=== PATIENT | male | born 1985 | race Caucasian/White ===

== ENCOUNTER 2017-08-27 10:28 | Inpatient (IN) | payer OTHER ==
[2017-08-27 10:50] VITALS: BMI 37.5
--- NOTE | 2017-08-27 13:10 | HP ---
CIWA Score - CIWA Score Nausea/Vomitin (N/V) Muscle Tremors: 1-None Visible, but [facility] Anxiety: 4-Mod. Anxious/Guarded Agitation: 4-Moderately Restless Paroxysmal Sweats: 1-Minimal Palms Moist Orientation: 0-Oriented Tacttile Disturbances: 3-Moderate Itch/Numb/Burn Auditory Disturbances: 0-None Visual Disturbances: 0-None Headache: 1-Very Mild CIWA-Ar Total Score: 19 Admission ROS S - HPI Chief Complaint: WITHRAWAL FROM XANAX AND ALCOHOL Allergies/Adverse Reactions: Allergies Allergy/AdvReac Type Severity Reaction Status Date / Time Penicillins Allergy Severe Rash Verified 08/27/17 11:48 shellfish derived Allergy Severe Hives Verified 08/27/17 11:48 History of Present Illness: 32 Y/O H/MALE WITH A HX OF XANAX, ALCOHOL AND MARIJUANA DEPENDENCE SEEKING DETOX [place] Exam Limitations: No Limitations - Ebola screening Have you traveled outside of the country in the last 21 days: No Have you had contact with anyone from an Ebola affected area: No Have you been sick,other than usual withdrawal symptoms: No - Review of Systems Constitutional: Chills, Loss of Appetite, Night Sweats, Changes in sleep EENT: reports: Blurred Vision (WEARS GLASSES), Tearing, Nose Congestion, Dental Problems (TOOTH EXTRACTION IN THE PAST) Respiratory: reports: Shortness of Breath (HX ASTHMA), Wheezing Cardiac: reports: Lightheadedness GI: reports: Constipated (OIC), Diarrhea, Nausea, Poor Appetite, Vomiting, Abdominal cramping : reports: Dysuria ("TAKES TOO LONG TO PEE") Musculoskeletal: reports: Back Pain, Joint Pain, Muscle Pain Integumentary: reports: No Symptoms Reported Neuro: reports: Headache, Tremors, Unsteady Gait, Dizziness Endocrine: reports: No Symptoms Reported Hematology: reports: No Symptoms Reported Psychiatric: reports: Orientated x3, Anxious, Depressed Other Systems: Reviewed and Negative Patient History - Patient Medical History Hx Anemia: No Hx Asthma: Yes (Pt is on MDI) Hx Chronic Obstructive Pulmonary Disease (COPD): No Hx Cancer: No Hx Cardiac Disorders: No Hx Congestive Heart Failure: No Hx Hypertension: No Hx Hypercholesterolemia: No Hx Pacemaker: No HX Cerebrovascular Accident: No Hx Seizures: No Hx Dementia: No Hx Diabetes: No Hx Gastrointestinal Disorders: No Hx Liver Disease: No Hx Genitourinary Disorders: No Hx Sexually Transmitted Disorders: No Hx Renal Disease (ESRD): No Hx Thyroid Disease: No Hx Human Immunodeficiency Virus (HIV): No (negative hx) Hx Hepatitis C: No (negative) Hx Depression: Yes (NOT CURRENTLY ON MEDS) Hx Suicide Attempt: Yes (Tried to cut himself in 2010;DENIES CURRENT S/H/I) Hx Bipolar Disorder: No Hx Schizophrenia: No - Patient Surgical History Past Surgical History: Yes Hx Neurologic Surgery: No Hx Cataract Extraction: No Hx Cardiac Surgery: No Hx Lung Surgery: No Hx Breast Surgery: No Hx Breast Biopsy: No Hx Abdominal Surgery: No Hx Appendectomy: No Hx Cholecystectomy: No Hx Genitourinary Surgery: No Hx Orthopedic Surgery: Yes (left shoulder torn rotator cuff repair circa 2006) Anesthesia Reaction: No - PPD History Previous Implant?: Yes Documented Results: Negative w/proof Implanted On Prior [facility] Admission?: Yes Date: 06/02/17 Results: 0 mm PPD to be Administered?: No - Reproductive History Patient is a Female of Child Bearing Age (11 -55 yrs old): No (MALE) - Smoking Cessation Smoking history: Current every day smoker Have you smoked in the past 12 months: Yes Aproximately how many cigarettes per day: 20 Cigars Per Day: 0 Hx Chewing Tobacco Use: No Initiated information on smoking cessation: Yes 'Breaking Loose' booklet given: 08/27/17 - Substances Abused Alprazolam (Xanax) Route: Oral Frequency: Daily Amount used: 6mg Age of first use: 23 Date of Last Use: 08/27/17 Alcohol Route: Oral Frequency: Daily Amount used: 1 pint vodka/ 2 40 oz malt liquor Age of first use: 17 Date of Last Use: 08/27/17 Marijuana/Hashish Route: Smoking Frequency: Daily Amount used: 1 blunt Age of first use: 17 Date of Last Use: 08/25/17 PCP Route: Smoking Frequency: 1-3 times last 30 days Amount used: 1 blunt Age of first use: 20 Date of Last Use: 08/20/17 Family Disease History - Family Disease History Family Disease History: Diabetes: Father (drug addiction) Admission Physical Exam BHS - Vital Signs Vital Signs: Vital Signs - 24 hr 01/30/18 10:48 Temperature 98.1 F Pulse Rate 115 H Respiratory 18 Rate Blood Pressure 150/97 - Physical General Appearance: Yes: Moderate Distress, Irritable, Anxious HEENTM: Yes: EOMI, Normocephalic, OLE, Pharynx Normal Respiratory: Yes: Chest Non-Tender, Lungs Clear, Normal Breath Sounds, No Respiratory Distress Neck: Yes: No masses,lesions,Nodules, Supple, Trachea in good position Breast: Yes: Breast Exam Deferred Cardiology: Yes: Regular Rhythm, S1, S2, Tachycardia Abdominal: Yes: Normal Bowel Sounds, Non Tender, Soft, Protuberent Genitourinary: Yes: Other (N/C) Back: Yes: Within Normal Limits Musculoskeletal: Yes: full range of Motion, Gait Steady Extremities: Yes: Normal Range of Motion, Non-Tender 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, Fully Oriented, Alert, Motor Strength 5/5 Integumentary: Yes: Dry, Warm Lymphatic: Yes: Within Normal Limits - Diagnostic (1) Alcohol dependence with uncomplicated withdrawal Current Visit: Yes Status: Acute (2) Nicotine dependence Current Visit: Yes Status: Acute Qualifiers: Nicotine product type: cigarettes Substance use status: in withdrawal Qualified Code(s): F17.213 - Nicotine dependence, cigarettes, with withdrawal (3) Sedative hypnotic or anxiolytic dependence Current Visit: Yes Status: Acute (4) Asthma Current Visit: Yes Status: Chronic Qualifiers: Asthma severity: mild Asthma persistence: unspecified Asthma complication type: uncomplicated Qualified Code(s): J45.909 - Unspecified asthma, uncomplicated (5) Marijuana dependence Current Visit: Yes Status: Acute (6) Methadone maintenance therapy patient Current Visit: Yes Status: Chronic Cleared for Admission [facility] - Detox or Rehab [facility] Level of Care: Medically Managed Detox Regimen/Protocol: Librium [facility] Breath Alcohol Content Breath Alcohol Content: 0 Urine Drug Screen - Results Drug Screen Negative: No Urine Drug Screen Results: THC-Marijuana, ROBY-Cocaine, BZO-Benzodiazepines, MTD- Methadone, TCA-Tricyclic Antidepress
[2017-08-27] MEDS ORDERED: guaiFENesin/D-METHORPHAN HB 10 ML UNIT-DOSE CUPS PO PRN (13:25)
[2017-08-27] MEDS ORDERED: LOPERAMIDE HCL 2 MG CAPSULE PO PRN (13:25)
[2017-08-27] MEDS ORDERED: MAGNESIUM CITRATE 300 ML BOTTLE PO PRN (13:25)
[2017-08-27] MEDS ORDERED: IBUPROFEN 400 MG TABLET (FP) PO PRN (13:25)
[2017-08-27] MEDS ORDERED: MAGNESIUM HYDROX 2400MG/30ML ORAL SUSPENSION 30 ML CUP PO PRN (13:25)
[2017-08-27] MEDS ORDERED: P-EPHED 60MG/TRIPROLIDI 2.5MG TABLET PO PRN (13:25)
[2017-08-27] MEDS ORDERED: MAG HYDROX/AL HYDROX/SIMETH 30 ML UNIT-DOSE CUP PO PRN (13:25)
[2017-08-27] MEDS ORDERED: ACETAMINOPHEN 325 MG TABLET (FP) PO PRN (13:25)
[2017-08-27] MEDS ORDERED: MENTHOL/PHENOL 1 EACH UD MM PRN (13:25)
[2017-08-27] MEDS ORDERED: chlordiazePOXIDE HCL 25 MG CAPSULE PO ONE (13:45)
[2017-08-27] MEDS: NICOTINE 21 MG/24 HOURS TOPICAL PATCH TD SCH (14:31)
[2017-08-27] MEDS: NICOTINE POLACRILEX 4 MG GUM BUC PRN ×4 (14:31→22:05)
--- NOTE | 2017-08-27 15:49 | EKG ---
Test Reason : Blood Pressure : / mmHG Vent. Rate : 077 BPM Atrial Rate : 077 BPM P-R Int : 150 ms QRS Dur : 104 ms QT Int : 398 ms P-R-T Axes : 025 049 036 degrees QTc Int : 450 ms NORMAL SINUS RHYTHM NORMAL ECG WHEN COMPARED WITH ECG OF 31-MAY-2017 14:22, NO SIGNIFICANT CHANGE WAS FOUND Confirmed by MD FANY, YENY ([id number]) on 08/27/2017 3:49:45 PM Referred By: Confirmed By:YENY SOARES MD
--- NOTE | 2017-08-27 16:00 | CONSULT ---
[facility] Psychiatric Consult - Data Date of interview: 08/27/17 Admission source: [facility] Identifying data: Another admission to [facility] for this 32 y/o male seeking detox treatment on for alcohol,opioid,cannabis,xanax and cocaine dependence.Patient is single without children,currently undomiciled, unemployed and reportedly deprived of any source of income. Substance Abuse History: Discussed in this interview.Addictions confirmed by the patient as reported in current [facility] document : Smoking history: Current every day smoker. Have you smoked in the past 12 months: Yes. Aproximately how many cigarettes per day: 20. Cigars Per Day: 0. Hx Chewing Tobacco Use: No. Initiated information on smoking cessation: Yes. 'Breaking Loose' booklet given: 08/27/17. - Substances Abused. Alprazolam (Xanax). Route: Oral. Frequency: Daily. Amount used: 6mg. Age of first use: 23. Date of Last Use: 08/27/17. Alcohol. Route: Oral. Frequency: Daily. Amount used: 1 pint vodka/ 2 40 oz malt liquor. Age of first use: 17. Date of Last Use: 08/27/17. Marijuana/Hashish. Route: Smoking. Frequency: Daily. Amount used: 1 blunt. Age of first use: 17. Date of Last Use: 08/25/17. PCP. Route: Smoking. Frequency: 1-3 times last 30 days. Amount used: 1 blunt. Age of first use: 20. Date of Last Use: 08/20/17 Medical History: Allergic to penicillin.Co-morbidities are consistent with bronchial asthma,obesity and a history of orthosurgery for injury of rotator cuff (left shoulder). Psychiatric History: First contact with Psychiatry (age 16).Diagnosed with MDD and Anxiety Disorder.Patient admits to several psychiatric hospitalizations ([facility] in [facility]).Mr Mike declares current methadone maintenance (80 mg/day) at the [facility] in [place].Formerly known to Kacy Barton.Past psychotropic medications consisted of zoloft,gabapentin and ambien.Non-adherent for several months as per self-report.Patient endorses a history of trials of trazodone,aripriprazole,paroxetine.Expresses decision to abstain from these medications.Only willing to take zolpidem (insomnia) and adhere to his detoxification regime.Suicide history is remarkable for a serious attempt in 2009 (severe self-inflicted laceration of right wrist). Physical/Sexual Abuse/Trauma History: No reported history of abuse.Current stressors : homelessness,financial difficulties,addictions,estrangement from relatives,inexistent support network,unemployment and lack of vocational skills. Additional Comment: Urine Drug Screen Results: THC-Marijuana, ROBY-Cocaine, BZO- Benzodiazepines, MTD-Methadone, TCA-Tricyclic Antidepressant.Noted. Mental Status Exam - Mental Status Exam Alert and Oriented to: Time, Person Cognitive Function: Good Patient Appearance: Well Groomed (stature,obese) Mood: Nervous, Withdrawn, Anxious Affect: Mood Congruent, Constricted Patient Behavior: Fatigued, Appropriate, Cooperative Speech Pattern: Clear, Appropriate Voice Loudness: Normal Thought Process: Intact, Goal Oriented Thought Disorder: Not Present Hallucinations: Denies Suicidal Ideation: Denies Homicidal Ideation: Denies Insight/Judgement: Poor Sleep: Poorly, Difficulty falling asleep Appetite: Good Muscle strength/Tone: Normal Gait/Station: Normal Psychiatric Findings - Problem List ([place] 1, 2,3) (1) Opioid dependence with withdrawal Current Visit: Yes Status: Acute (2) Opioid dependence on agonist therapy Current Visit: Yes Status: Acute (3) Alcohol dependence with uncomplicated withdrawal Current Visit: Yes Status: Acute (4) Sedative hypnotic or anxiolytic dependence Current Visit: Yes Status: Acute (5) Cocaine dependence Current Visit: Yes Status: Acute (6) Nicotine dependence Current Visit: Yes Status: Acute Qualifiers: Nicotine product type: cigarettes Substance use status: in withdrawal Qualified Code(s): F17.213 - Nicotine dependence, cigarettes, with withdrawal (7) Marijuana dependence Current Visit: Yes Status: Acute (8) Substance induced mood disorder Current Visit: Yes Status: Acute (9) Insomnia Current Visit: Yes Status: Acute - Initial Treatment Plan Initial Treatment Plan: Previous records are revisited.Psychoeducation and support provided in this session.Orientation to unit.Sleep hygiene discussed with the patient.Detoxification in progress.Ambien 10 mg po hs prn.Ordered.Patient is informed of the potential for occurrence of parasomnias ( sleep-walking).Mr Mckeon consented (verbally) to this careplan.Daily monitoring of clinical course.
[2017-08-27 16:34] LABS: HEMATOCRIT 41.2 % (35.4-49); HEMOGLOBIN 13.6 GM/dL (11.7-16.9); MCH 29.3 pg (25.7-33.7); MCHC 33.1 g/dl (32.0-35.9); MEAN CELL VOLUME 88.7 fl (80-96); MEAN PLT VOLUME 8.1 fl (7.5-11.1); PLATELET COUNT 219 K/MM3 (134-434); RBC 4.65 M/mm3 (4.00-5.60); RDW 14.5 % (11.9-15.9); WHITE BLOOD COUNT 5.8 K/mm3 (4.0-10.0)
[2017-08-27] MEDS: chlordiazePOXIDE HCL 25 MG CAPSULE PO SCH ×2 (16:42→22:03)
[2017-08-27 16:49] LABS: URINE APPEARANCE CLEAR; URINE BILIRUBIN NEGATIVE (NEGATIVE); URINE BLOOD NEGATIVE (NEGATIVE); URINE COLOR DKYELLOW; URINE GLUCOSE (UA) NEGATIVE (NEGATIVE); URINE KETONE NEGATIVE (NEGATIVE); URINE LEUK ESTERASE TRACE (NEGATIVE); URINE NITRITE NEGATIVE (NEGATIVE)
[2017-08-27 16:55] LABS: URINE PROTEIN 1+ (NEGATIVE)
[2017-08-27 17:28] LABS: EPI CELLS RARE /HPF (FEW); URINE BACTERIA RARE /hpf (NONE SEEN); URINE HYALINE CAST 10 /lpf; URINE MUCUS RARE
[2017-08-27 18:21] LABS: ALBUMIN 4.1 g/dl (3.4-5.0); ANION GAP 9 (8-16); BLOOD UREA NITROGEN 12 mg/dL (7-18); CALCIUM 9.7 mg/dL (8.5-10.1); CHLORIDE 98 mmol/L (98-107); CO2 29 mmol/L (21-32); GLUCOSE,RANDOM 94 mg/dL (74-106); POTASSIUM 4.4 mmol/L (3.5-5.1); SGOT/AST 124 U/L (15-37); SGPT/ALT 115 U/L (12-78); SODIUM 136 mmol/L (136-145)
[2017-08-27 18:23] LABS: ALK PHOS 111 U/L (45-117); BILIRUBIN,TOTAL 0.6 mg/dL (0.2-1.0); CREATININE 1.1 mg/dL (0.7-1.3); TOT PROT 8.3 g/dl (6.4-8.2)
[2017-08-27] MEDS: chlordiazePOXIDE HCL 25 MG CAPSULE PO PRN (19:59)
[2017-08-27] MEDS: THIAMINE HCL 100 MG TABLET (FP) PO SCH (22:03)
[2017-08-27] MEDS: ZOLPIDEM TARTRATE 10 MG TABLET (PARK CARE ONLY) PO PRN (22:03)
[2017-08-28] MEDS: NICOTINE POLACRILEX 4 MG GUM BUC PRN ×8 (01:18→23:18)
[2017-08-28] MEDS: chlordiazePOXIDE HCL 25 MG CAPSULE PO PRN ×3 (01:18→20:49)
[2017-08-28] MEDS: chlordiazePOXIDE HCL 25 MG CAPSULE PO SCH ×4 (05:11→22:02)
[2017-08-28] MEDS: METHADONE HCL 40 MG DISPERSABLE TABLET PO SCH (08:36)
[2017-08-28] MEDS: PRENATAL VITAMINS W/ FOLIC ACID TABLET (FP) PO SCH (10:31)
[2017-08-28] MEDS: ALBUTEROL SO4 18 GM HFA INHALER IH PRN (10:32)
[2017-08-28] MEDS: NICOTINE 21 MG/24 HOURS TOPICAL PATCH TD SCH (10:32)
--- NOTE | 2017-08-28 12:14 | PN ---
S CIWA - CIWA Score Nausea/Vomitin-No Nausea/No Vomiting Muscle Tremors: None Anxiety: 4-Mod. Anxious/Guarded Agitation: 3 Paroxysmal Sweats: 3 Orientation: 0-Oriented Tacttile Disturbances: 1-Very Mild Itch/Numbness Auditory Disturbances: 0-None Visual Disturbances: 3-Moderate Sensitivity Headache: 3-Moderate CIWA-Ar Total Score: 17 BHS Progress Note (SOAP) Subjective: Body Aches, Sweating, Diarrhea, Interrupted Sleep, H/A. Objective: PT. A & O X 3, OBSERVED AMBULATING ON UNIT. NO ACUTE DISTRESS. 08/28/17 12:19 Vital Signs Temperature 96.0 F L 08/28/17 09:17 Pulse Rate 78 08/28/17 09:17 Respiratory Rate 18 08/28/17 09:17 Blood Pressure 120/82 08/28/17 09:17 O2 Sat by Pulse Oximetry (%) Laboratory Tests 08/27/17 08/27/17 08/27/17 14:00 14:00 14:00 WBC 5.8 RBC 4.65 Hgb 13.6 Hct 41.2 MCV 88.7 MCH 29.3 MCHC 33.1 RDW 14.5 Plt Count 219 MPV 8.1 Sodium 136 Potassium 4.4 Chloride 98 Carbon Dioxide 29 Anion Gap 9 BUN 12 Creatinine 1.1 Creat Clearance w eGFR > 60 Random Glucose 94 Calcium 9.7 Total Bilirubin 0.6 D AST 124 H D ALT 115 H D Alkaline Phosphatase 111 D Total Protein 8.3 H Albumin 4.1 Urine Color Urine Appearance Urine pH Ur Specific [place] Urine Protein Urine Glucose (UA) Urine Ketones Urine Blood Urine Nitrite Urine Bilirubin Urine Urobilinogen Ur Leukocyte Esterase Urine WBC (Auto) Urine RBC (Auto) Ur Epithelial Cells Urine Bacteria Hyaline Casts Urine Mucus RPR Titer Nonreactive 08/27/17 15:30 WBC RBC Hgb Hct MCV MCH MCHC RDW Plt Count MPV Sodium Potassium Chloride Carbon Dioxide Anion Gap BUN Creatinine Creat Clearance w eGFR Random Glucose Calcium Total Bilirubin AST ALT Alkaline Phosphatase Total Protein Albumin Urine Color Dkyellow Urine Appearance Clear Urine pH 5.0 Ur Specific [place] 1.023 Urine Protein 1+ H Urine Glucose (UA) Negative Urine Ketones Negative Urine Blood Negative Urine Nitrite Negative Urine Bilirubin Negative Urine Urobilinogen 2.0 Ur Leukocyte Esterase Trace Urine WBC (Auto) 1 Urine RBC (Auto) <1 Ur Epithelial Cells Rare Urine Bacteria Rare Hyaline Casts 10 Urine Mucus Rare RPR Titer LABS NOTED. Assessment: 08/28/17 12:19 WITHDRAWAL SYMPTOMS. Plan: CONTINUE DETOX. REPEAT AST TOMORROW AM FOR ELEVATED ADMISSION LEVEL. PRN IMMODIUM FOR DIARRHEA. INCREASE DAILY PO FLUID INTAKE.
[2017-08-28] MEDS: ACETAMINOPHEN 325 MG TABLET (FP) PO PRN (13:48)
[2017-08-28] MEDS: ZOLPIDEM TARTRATE 10 MG TABLET (PARK CARE ONLY) PO PRN (22:02)
[2017-08-28] MEDS: THIAMINE HCL 100 MG TABLET (FP) PO SCH (22:02)
[2017-08-29] MEDS: chlordiazePOXIDE HCL 25 MG CAPSULE PO PRN ×3 (01:43→20:41)
[2017-08-29] MEDS: NICOTINE POLACRILEX 4 MG GUM BUC PRN ×8 (01:44→22:11)
[2017-08-29] MEDS: METHADONE HCL 40 MG DISPERSABLE TABLET PO SCH (05:26)
[2017-08-29] MEDS: chlordiazePOXIDE HCL 25 MG CAPSULE PO SCH ×2 (05:27→10:21)
[2017-08-29] MEDS: ACETAMINOPHEN 325 MG TABLET (FP) PO PRN (10:21)
[2017-08-29] MEDS: NICOTINE 21 MG/24 HOURS TOPICAL PATCH TD SCH (10:21)
[2017-08-29] MEDS: PRENATAL VITAMINS W/ FOLIC ACID TABLET (FP) PO SCH (10:21)
[2017-08-29 10:42] LABS: SGOT/AST 67 U/L (15-37); SGPT/ALT 86 U/L (12-78)
--- NOTE | 2017-08-29 12:05 | PN ---
[facility] CIWA - CIWA Score Nausea/Vomitin-No Nausea/No Vomiting Muscle Tremors: None Anxiety: 3 Agitation: 2 Paroxysmal Sweats: 3 Orientation: 0-Oriented Tacttile Disturbances: 2-Mild Itch/Numbness/Burn Auditory Disturbances: 0-None Visual Disturbances: 2-Mild Sensitivity Headache: 3-Moderate CIWA-Ar Total Score: 15 S Progress Note (SOAP) Subjective: Anxious, Body Aches, Sweating, H/A, Interrupted sleep, Sweating, Constipation. Objective: PT. A & O X 3, OBSERVED AMBULATING ON UNIT. NO ACUTE DISTRESS. 08/29/17 12:07 Vital Signs Temperature 98.2 F 08/29/17 10:01 Pulse Rate 77 08/29/17 10:01 Respiratory Rate 18 08/29/17 10:01 Blood Pressure 114/74 08/29/17 10:01 O2 Sat by Pulse Oximetry (%) Laboratory Tests 08/27/17 08/27/17 08/27/17 14:00 14:00 14:00 WBC 5.8 RBC 4.65 Hgb 13.6 Hct 41.2 MCV 88.7 MCH 29.3 MCHC 33.1 RDW 14.5 Plt Count 219 MPV 8.1 Sodium 136 Potassium 4.4 Chloride 98 Carbon Dioxide 29 Anion Gap 9 BUN 12 Creatinine 1.1 Creat Clearance w eGFR > 60 Random Glucose 94 Calcium 9.7 Total Bilirubin 0.6 D AST 124 H D ALT 115 H D Alkaline Phosphatase 111 D Total Protein 8.3 H Albumin 4.1 Urine Color Urine Appearance Urine pH Ur Specific [place] Urine Protein Urine Glucose (UA) Urine Ketones Urine Blood Urine Nitrite Urine Bilirubin Urine Urobilinogen Ur Leukocyte Esterase Urine WBC (Auto) Urine RBC (Auto) Ur Epithelial Cells Urine Bacteria Hyaline Casts Urine Mucus RPR Titer Nonreactive 08/27/17 08/29/17 15:30 07:00 WBC RBC Hgb Hct MCV MCH MCHC RDW Plt Count MPV Sodium Potassium Chloride Carbon Dioxide Anion Gap BUN Creatinine Creat Clearance w eGFR Random Glucose Calcium Total Bilirubin AST 67 H D ALT 86 H D Alkaline Phosphatase Total Protein Albumin Urine Color Dkyellow Urine Appearance Clear Urine pH 5.0 Ur Specific [place] 1.023 Urine Protein 1+ H Urine Glucose (UA) Negative Urine Ketones Negative Urine Blood Negative Urine Nitrite Negative Urine Bilirubin Negative Urine Urobilinogen 2.0 Ur Leukocyte Esterase Trace Urine WBC (Auto) 1 Urine RBC (Auto) <1 Ur Epithelial Cells Rare Urine Bacteria Rare Hyaline Casts 10 Urine Mucus Rare RPR Titer LABS NOTED. Assessment: 08/29/17 12:07 WITHDRAWAL SYMPTOMS. Plan: CONTINUE DETOX.
[2017-08-29] MEDS: chlordiazePOXIDE 5 MG CAPSULE PO SCH ×2 (17:16→22:09)
[2017-08-29] MEDS: THIAMINE HCL 100 MG TABLET (FP) PO SCH (22:09)
[2017-08-29] MEDS: ZOLPIDEM TARTRATE 10 MG TABLET (PARK CARE ONLY) PO PRN (22:09)
[2017-08-30] MEDS: chlordiazePOXIDE HCL 25 MG CAPSULE PO PRN ×2 (01:47→12:45)
[2017-08-30] MEDS: chlordiazePOXIDE 5 MG CAPSULE PO SCH ×2 (05:19→10:16)
[2017-08-30] MEDS: METHADONE HCL 40 MG DISPERSABLE TABLET PO SCH (05:19)
[2017-08-30] MEDS: NICOTINE POLACRILEX 4 MG GUM BUC PRN ×6 (08:35→22:17)
[2017-08-30] MEDS: NICOTINE 21 MG/24 HOURS TOPICAL PATCH TD SCH (10:16)
[2017-08-30] MEDS: PRENATAL VITAMINS W/ FOLIC ACID TABLET (FP) PO SCH (10:16)
--- NOTE | 2017-08-30 15:23 | PN ---
BHS Progress Note (SOAP) Subjective: Interrupted sleep, Vomiting. Objective: PT. A & O X 3, OBSERVED AMBULATING ON UNIT. NO ACUTE DISTRESS. 08/30/17 15:22 Vital Signs Temperature 97.0 F L 08/30/17 13:33 Pulse Rate 84 08/30/17 13:33 Respiratory Rate 18 08/30/17 13:33 Blood Pressure 118/81 08/30/17 13:33 O2 Sat by Pulse Oximetry (%) Laboratory Tests 08/27/17 08/27/17 08/27/17 14:00 14:00 14:00 WBC 5.8 RBC 4.65 Hgb 13.6 Hct 41.2 MCV 88.7 MCH 29.3 MCHC 33.1 RDW 14.5 Plt Count 219 MPV 8.1 Sodium 136 Potassium 4.4 Chloride 98 Carbon Dioxide 29 Anion Gap 9 BUN 12 Creatinine 1.1 Creat Clearance w eGFR > 60 Random Glucose 94 Calcium 9.7 Total Bilirubin 0.6 D AST 124 H D ALT 115 H D Alkaline Phosphatase 111 D Total Protein 8.3 H Albumin 4.1 Urine Color Urine Appearance Urine pH Ur Specific [place] Urine Protein Urine Glucose (UA) Urine Ketones Urine Blood Urine Nitrite Urine Bilirubin Urine Urobilinogen Ur Leukocyte Esterase Urine WBC (Auto) Urine RBC (Auto) Ur Epithelial Cells Urine Bacteria Hyaline Casts Urine Mucus RPR Titer Nonreactive 08/27/17 08/29/17 15:30 07:00 WBC RBC Hgb Hct MCV MCH MCHC RDW Plt Count MPV Sodium Potassium Chloride Carbon Dioxide Anion Gap BUN Creatinine Creat Clearance w eGFR Random Glucose Calcium Total Bilirubin AST 67 H D ALT 86 H D Alkaline Phosphatase Total Protein Albumin Urine Color Dkyellow Urine Appearance Clear Urine pH 5.0 Ur Specific [place] 1.023 Urine Protein 1+ H Urine Glucose (UA) Negative Urine Ketones Negative Urine Blood Negative Urine Nitrite Negative Urine Bilirubin Negative Urine Urobilinogen 2.0 Ur Leukocyte Esterase Trace Urine WBC (Auto) 1 Urine RBC (Auto) <1 Ur Epithelial Cells Rare Urine Bacteria Rare Hyaline Casts 10 Urine Mucus Rare RPR Titer LABS NOTED. Assessment: 08/30/17 15:22 WITHDRAWAL SYMPTOMS. Plan: CONTINUE DETOX.
[2017-08-30] MEDS: chlordiazePOXIDE HCL 10 MG CAPSULE PO SCH ×2 (17:24→22:16)
[2017-08-30] MEDS: THIAMINE HCL 100 MG TABLET (FP) PO SCH (22:17)
[2017-08-30] MEDS ORDERED: ZOLPIDEM TARTRATE 10 MG TABLET (PARK CARE ONLY) PO ONE (22:33)
[2017-08-31] MEDS: chlordiazePOXIDE HCL 10 MG CAPSULE PO SCH ×2 (05:14→10:18)
[2017-08-31] MEDS: METHADONE HCL 40 MG DISPERSABLE TABLET PO SCH (05:15)
[2017-08-31] MEDS: NICOTINE POLACRILEX 4 MG GUM BUC PRN ×7 (05:27→22:15)
[2017-08-31] MEDS: PRENATAL VITAMINS W/ FOLIC ACID TABLET (FP) PO SCH (10:17)
[2017-08-31] MEDS: NICOTINE 21 MG/24 HOURS TOPICAL PATCH TD SCH (10:18)
[2017-08-31] MEDS: ACETAMINOPHEN 325 MG TABLET (FP) PO PRN (13:12)
--- NOTE | 2017-08-31 16:16 | PN ---
S Progress Note (SOAP) Subjective: Interrupted sleep, Fatigue, Vomiting, Anxious. Objective: PT. A & O X 3, OBSERVED AMBULATING ON UNIT. NO ACUTE DISTRESS. 08/31/17 16:13 Vital Signs Temperature 96.3 F L 08/31/17 13:32 Pulse Rate 83 08/31/17 13:32 Respiratory Rate 18 08/31/17 13:32 Blood Pressure 110/76 08/31/17 13:32 O2 Sat by Pulse Oximetry (%) Laboratory Tests 08/27/17 08/27/17 08/27/17 14:00 14:00 14:00 WBC 5.8 RBC 4.65 Hgb 13.6 Hct 41.2 MCV 88.7 MCH 29.3 MCHC 33.1 RDW 14.5 Plt Count 219 MPV 8.1 Sodium 136 Potassium 4.4 Chloride 98 Carbon Dioxide 29 Anion Gap 9 BUN 12 Creatinine 1.1 Creat Clearance w eGFR > 60 Random Glucose 94 Calcium 9.7 Total Bilirubin 0.6 D AST 124 H D ALT 115 H D Alkaline Phosphatase 111 D Total Protein 8.3 H Albumin 4.1 Urine Color Urine Appearance Urine pH Ur Specific [place] Urine Protein Urine Glucose (UA) Urine Ketones Urine Blood Urine Nitrite Urine Bilirubin Urine Urobilinogen Ur Leukocyte Esterase Urine WBC (Auto) Urine RBC (Auto) Ur Epithelial Cells Urine Bacteria Hyaline Casts Urine Mucus RPR Titer Nonreactive 08/27/17 08/29/17 15:30 07:00 WBC RBC Hgb Hct MCV MCH MCHC RDW Plt Count MPV Sodium Potassium Chloride Carbon Dioxide Anion Gap BUN Creatinine Creat Clearance w eGFR Random Glucose Calcium Total Bilirubin AST 67 H D ALT 86 H D Alkaline Phosphatase Total Protein Albumin Urine Color Dkyellow Urine Appearance Clear Urine pH 5.0 Ur Specific [place] 1.023 Urine Protein 1+ H Urine Glucose (UA) Negative Urine Ketones Negative Urine Blood Negative Urine Nitrite Negative Urine Bilirubin Negative Urine Urobilinogen 2.0 Ur Leukocyte Esterase Trace Urine WBC (Auto) 1 Urine RBC (Auto) <1 Ur Epithelial Cells Rare Urine Bacteria Rare Hyaline Casts 10 Urine Mucus Rare RPR Titer LABS NOTED. Assessment: 08/31/17 16:13 WITHDRAWAL SYMPTOMS. Plan: CONTINUE DETOX. DUE TO PERSISTENCE AND SEVERITY OF CURRENT DETOX SYMPTOMS, PATIENT PERMITTED TO REMAIN ON DETOX UNIT UNTIL 09/02/2017, AT WHICH TIME HE WILL APPLY FOR REHAB ADMISSION AT [facility] OR [facility].
[2017-08-31] MEDS: THIAMINE HCL 100 MG TABLET (FP) PO SCH (22:15)
[2017-08-31] MEDS: ALBUTEROL SO4 18 GM HFA INHALER IH PRN (22:15)
[2017-08-31] MEDS: hydrOXYzine PAMOATE 50 MG CAPSULE (FP) PO SCH (22:16)
[2017-09-01] MEDS: METHADONE HCL 40 MG DISPERSABLE TABLET PO SCH (05:46)
[2017-09-01] MEDS: NICOTINE POLACRILEX 4 MG GUM BUC PRN ×6 (05:47→21:12)
[2017-09-01] MEDS: PRENATAL VITAMINS W/ FOLIC ACID TABLET (FP) PO SCH (10:19)
[2017-09-01] MEDS: NICOTINE 21 MG/24 HOURS TOPICAL PATCH TD SCH (10:19)
--- NOTE | 2017-09-01 15:16 | PN ---
BHS Progress Note (SOAP) Subjective: Anxious, Body Aches, Interrupted Sleep, Fatigue. Objective: PT A & O X 3, OBSERVED AMBULATING ON UNIT. NO ACUTE DISTRESS. 09/01/17 15:16 Vital Signs Temperature 98.1 F 09/01/17 14:03 Pulse Rate 84 09/01/17 14:03 Respiratory Rate 20 09/01/17 14:03 Blood Pressure 107/71 09/01/17 14:03 O2 Sat by Pulse Oximetry (%) Laboratory Tests 08/27/17 08/27/17 08/27/17 14:00 14:00 14:00 WBC 5.8 RBC 4.65 Hgb 13.6 Hct 41.2 MCV 88.7 MCH 29.3 MCHC 33.1 RDW 14.5 Plt Count 219 MPV 8.1 Sodium 136 Potassium 4.4 Chloride 98 Carbon Dioxide 29 Anion Gap 9 BUN 12 Creatinine 1.1 Creat Clearance w eGFR > 60 Random Glucose 94 Calcium 9.7 Total Bilirubin 0.6 D AST 124 H D ALT 115 H D Alkaline Phosphatase 111 D Total Protein 8.3 H Albumin 4.1 Urine Color Urine Appearance Urine pH Ur Specific [place] Urine Protein Urine Glucose (UA) Urine Ketones Urine Blood Urine Nitrite Urine Bilirubin Urine Urobilinogen Ur Leukocyte Esterase Urine WBC (Auto) Urine RBC (Auto) Ur Epithelial Cells Urine Bacteria Hyaline Casts Urine Mucus RPR Titer Nonreactive 08/27/17 08/29/17 15:30 07:00 WBC RBC Hgb Hct MCV MCH MCHC RDW Plt Count MPV Sodium Potassium Chloride Carbon Dioxide Anion Gap BUN Creatinine Creat Clearance w eGFR Random Glucose Calcium Total Bilirubin AST 67 H D ALT 86 H D Alkaline Phosphatase Total Protein Albumin Urine Color Dkyellow Urine Appearance Clear Urine pH 5.0 Ur Specific [place] 1.023 Urine Protein 1+ H Urine Glucose (UA) Negative Urine Ketones Negative Urine Blood Negative Urine Nitrite Negative Urine Bilirubin Negative Urine Urobilinogen 2.0 Ur Leukocyte Esterase Trace Urine WBC (Auto) 1 Urine RBC (Auto) <1 Ur Epithelial Cells Rare Urine Bacteria Rare Hyaline Casts 10 Urine Mucus Rare RPR Titer LABS NOTED. Assessment: 09/01/17 15:16 WITHDRAWAL SYMPTOMS. Plan: CONTINUE DETOX. DUE TO SEVERITY LEVEL OF PERSISTENT DETOX SYMPTOMS, PATIENT TO REMAIN ON DETOX UNIT UNTIL TOMORROW, 09/02/2017, AT WHICH TIME HE WILL LIKELY APPLY FOR ADMISSION TO [facility] FOR AFTERCARE.
[2017-09-01] MEDS: THIAMINE HCL 100 MG TABLET (FP) PO SCH (22:00)
[2017-09-01] MEDS: hydrOXYzine PAMOATE 50 MG CAPSULE (FP) PO SCH (22:01)
[2017-09-02] MEDS: METHADONE HCL 40 MG DISPERSABLE TABLET PO SCH (05:45)
[2017-09-02] MEDS: NICOTINE POLACRILEX 4 MG GUM BUC PRN (05:45)
[2017-09-02 07:09] VITALS: BP 107/65; PULSE 49; TEMP 97.6
--- NOTE | 2017-09-02 10:26 | DS ---
[facility] Detox Discharge Summary Admission Date: 08/27/17 Discharge Date: 09/02/17 - History Present History: Alcohol Dependence, Sedative Dependence - Physical Exam Results Vital Signs: Vital Signs Temperature 97.6 F 09/02/17 07:08 Pulse Rate 49 L 09/02/17 07:08 Respiratory Rate 18 09/02/17 07:08 Blood Pressure 107/65 09/02/17 07:08 O2 Sat by Pulse Oximetry (%) Pertinent Admission Physical Exam Findings: WITHDRAWAL SX Laboratory Last Values WBC 5.8 K/mm3 (4.0-10.0) 08/27/17 14:00 RBC 4.65 M/mm3 (4.00-5.60) 08/27/17 14:00 Hgb 13.6 GM/dL (11.7-16.9) 08/27/17 14:00 Hct 41.2 % (35.4-49) 08/27/17 14:00 MCV 88.7 fl (80-96) 08/27/17 14:00 MCH 29.3 pg (25.7-33.7) 08/27/17 14:00 MCHC 33.1 g/dl (32.0-35.9) 08/27/17 14:00 RDW 14.5 % (11.9-15.9) 08/27/17 14:00 Plt Count 219 K/MM3 (134-434) 08/27/17 14:00 MPV 8.1 fl (7.5-11.1) 08/27/17 14:00 Sodium 136 mmol/L (136-145) 08/27/17 14:00 Potassium 4.4 mmol/L (3.5-5.1) 08/27/17 14:00 Chloride 98 mmol/L (98-107) 08/27/17 14:00 Carbon Dioxide 29 mmol/L (21-32) 08/27/17 14:00 Anion Gap 9 (8-16) 08/27/17 14:00 BUN 12 mg/dL (7-18) 08/27/17 14:00 Creatinine 1.1 mg/dL (0.7-1.3) 08/27/17 14:00 Creat Clearance w eGFR > 60 (>60) 08/27/17 14:00 Random Glucose 94 mg/dL (74-106) 08/27/17 14:00 Calcium 9.7 mg/dL (8.5-10.1) 08/27/17 14:00 Total Bilirubin 0.6 mg/dL (0.2-1.0) D 08/27/17 14:00 AST 67 U/L (15-37) H D 08/29/17 07:00 ALT 86 U/L (12-78) H D 08/29/17 07:00 Alkaline Phosphatase 111 U/L (45-117) D 08/27/17 14:00 Total Protein 8.3 g/dl (6.4-8.2) H 08/27/17 14:00 Albumin 4.1 g/dl (3.4-5.0) 08/27/17 14:00 Urine Color Dkyellow 08/27/17 15:30 Urine Appearance Clear 08/27/17 15:30 Urine pH 5.0 (5.0-8.0) 08/27/17 15:30 Ur Specific Anderson 1.023 (1.001-1.035) 08/27/17 15:30 Urine Protein 1+ (NEGATIVE) H 08/27/17 15:30 Urine Glucose (UA) Negative (NEGATIVE) 08/27/17 15:30 Urine Ketones Negative (NEGATIVE) 08/27/17 15:30 Urine Blood Negative (NEGATIVE) 08/27/17 15:30 Urine Nitrite Negative (NEGATIVE) 08/27/17 15:30 Urine Bilirubin Negative (NEGATIVE) 08/27/17 15:30 Urine Urobilinogen 2.0 mg/dL (0.2-1.0) 08/27/17 15:30 Ur Leukocyte Esterase Trace (NEGATIVE) 08/27/17 15:30 Urine WBC (Auto) 1 /hpf (3-5) 08/27/17 15:30 Urine RBC (Auto) <1 /hpf (0-3) 08/27/17 15:30 Ur Epithelial Cells Rare /HPF (FEW) 08/27/17 15:30 Urine Bacteria Rare /hpf (NONE SEEN) 08/27/17 15:30 Hyaline Casts 10 /lpf 08/27/17 15:30 Urine Mucus Rare 08/27/17 15:30 RPR Titer Nonreactive (NONREACTIVE) 08/27/17 14:00 - Treatment Hospital Course: Detox Protocol Followed, Detoxed Safely, Responded well, Discharged Condition Good, Rehab Referral Accepted Patient has Accepted a Rehab Referral to: [facility] - Medication Discharge Medications: Ambulatory Orders Albuterol Sulfate Inhaler - [Ventolin HFA Inhaler -] 2 inh PO Q4H PRN 08/27/17 - Diagnosis (1) Alcohol dependence with uncomplicated withdrawal Status: Acute (2) Nicotine dependence Status: Acute Qualifiers: Nicotine product type: cigarettes Substance use status: in withdrawal Qualified Code(s): F17.213 - Nicotine dependence, cigarettes, with withdrawal (3) Sedative hypnotic or anxiolytic dependence Status: Acute (4) Asthma Status: Chronic Qualifiers: Asthma severity: mild Asthma persistence: unspecified Asthma complication type: uncomplicated Qualified Code(s): J45.909 - Unspecified asthma, uncomplicated (5) Methadone maintenance therapy patient Status: Chronic (6) Marijuana dependence Status: Acute - AMA Did Patient Leave Against Medical Advice: No
== END 2017-09-02 09:13 | disposition home or self-care (01) | DRG 773 ==
LOC: YASAS 10:28 → Y3N 13:31
PROVIDERS: ADMIT Internal Medicine; ATTEND Internal Medicine
PROC: HZ2ZZZZ Detoxification Services for Substance Abuse Treatment (ICD-10-PCS; principal; 2017-08-27)
DX: F17.213 Nicotine dependence, cigarettes, with withdrawal (principal); F11.23 Opioid dependence with withdrawal; F13.20 Sedative, hypnotic or anxiolytic dependence, uncomplicated; F10.230 Alcohol dependence with withdrawal, uncomplicated; F14.20 Cocaine dependence, uncomplicated; F12.20 Cannabis dependence, uncomplicated; F17.210 Nicotine dependence, cigarettes, uncomplicated; F19.24 Other psychoactive substance dependence with psychoactive substance-induced mood disorder; G47.00 Insomnia, unspecified; J45.909 Unspecified asthma, uncomplicated
CPT/HCPCS: 36415; 80053; 81003; 81015; 84450; 84460; 85027; 86593; 93005; 93010

== ENCOUNTER 2019-05-03 17:54 | Emergency (ER) | payer BC, OTHER ==
[2019-05-03 18:02] VITALS: BP 131/100; PULSE 80; TEMP 98.8; BMI 36.0
--- NOTE | 2019-05-03 18:59 | PDOC ---
History of Present Illness - General Chief Complaint: Chest Pain Stated Complaint: CHEST PAIN History Source: Patient Exam Limitations: No Limitations - History of Present Illness Initial Comments: 05/03/19 19:16 Patient is a 33-year-old male with history of mild asthma, rotator cuff repair, substance abuse in the past-currently drug-free, here with complaints of chest pain occurring for about 3 to 4 days. He describes the pain as a clenching in his distal xiphoid, intermittently 7/10 yesterday was worse and today was unable to go to work due to his pain. States his symptoms are associated with feeling hot and cold, shaky all the time, and on edge for no reason. States he has been very stressed since about February when his grandmother . He has not been eating more than 1 meal a day. And feels to withdrawal from people in social contacts. He has been having intermittent dizziness described as spinning sensation mostly on getting up from bed. He apparently had been going through some issues with grandmother at the time of that, he did not attend her week, and then she was cremated. And he is bothered by those issues in addition the memories of his best friend who also grew up with his grandma committed suicide 2 years ago. States he thought he was over his best friend's but now it seems not to have been resolved. He expresses no suicidality or homicidality. PMHX: As above PSOCHX: (+) cig 5-6/day ALL: PCN rash GENERAL/CONSTITUTIONAL: [No fever or chills. No weakness. No weight change.] HEAD, EYES, EARS, NOSE AND THROAT: [No change in vision. No ear pain or discharge. No sore throat.] CARDIOVASCULAR: [(+) chest pain or shortness of breath.] RESPIRATORY: [No cough, wheezing, or hemoptysis.] GASTROINTESTINAL: [No nausea, vomiting, diarrhea or constipation. No rectal bleeding.] GENITOURINARY: [No dysuria, frequency, or change in urination.] MUSCULOSKELETAL: [No joint or muscle swelling or pain. No neck or back pain.] SKIN AND BREASTS: [No rash or easy bruising.] NEUROLOGIC: [No headache, (+) vertigo, loss of consciousness, or loss of sensation.] PSYCHIATRIC: [(+) depression or anxiety.] ENDOCRINE: [No increased thirst. No abnormal weight change.] HEMATOLOGIC/LYMPHATIC: [No anemia, easy bleeding, or history of blood clots.] ALLERGIC/IMMUNOLOGIC: [No hives or skin allergy. No latex allergy.] GENERAL: [The patient is awake, alert, and fully oriented, in acute distress, crying throughout the evaluation.] HEAD: [Normal with no signs of trauma.] EYES: [Pupils equal, round and reactive to light, extraocular movements intact, sclera anicteric, conjunctiva clear.] ENT: [Ears normal, nares patent, oropharynx clear without exudates. Moist mucous membranes.] NECK: [Normal range of motion, supple without lymphadenopathy, JVD, or masses.] LUNGS: [Breath sounds equal, clear to auscultation bilaterally. No wheezes, and no crackles.] HEART: [Regular rate and rhythm, normal S1 and S2 without murmur, rub, tenderness distal xiphoid process.] ABDOMEN: [Soft, nontender, normoactive bowel sounds. No guarding, no rebound. No masses.] EXTREMITIES: [Normal range of motion, no edema. No clubbing or cyanosis. No cords, erythema, or tenderness.] NEUROLOGICAL: [Cranial nerves II through XII grossly intact. Normal speech, normal gait.] PSYCH: [Normal mood, normal affect.] SKIN: [Warm, Dry, normal turgor, no rashes or lesions noted.] Past History - Past Medical History Allergies/Adverse Reactions: Allergies Allergy/AdvReac Type Severity Reaction Status Date / Time Penicillins Allergy Severe Rash Verified 05/03/19 18:02 shellfish derived Allergy Severe Hives Verified 05/03/19 18:02 Home Medications: Ambulatory Orders Albuterol Sulfate Inhaler - [Ventolin HFA Inhaler -] 2 inh PO Q4H PRN 08/27/17 Anemia: No Asthma: Yes (Pt is on MDI) Cancer: No Cardiac Disorders: No CVA: No COPD: No CHF: No Dementia: No Diabetes: No GI Disorders: No Disorders: No HTN: No Hypercholesterolemia: No Kidney Stones: No Liver Disease: No Psychiatric Problems: Yes (Depression, bipolar) Seizures: No Thyroid Disease: No - Surgical History Abdominal Surgery: No Appendectomy: No Cardiac Surgery: No Cholecystectomy: No Lung Surgery: No Neurologic Surgery: No Orthopedic Surgery: Yes (left shoulder torn rotator cuff repair circa 2006) - Reproductive History Testicular Surgery: No - Immunization History Td Vaccination: (unknown) Immunization Up to Date: No - Psycho Social/Smoking Cessation Hx Smoking Status: Yes Smoking History: Current every day smoker Years of Tobacco Use: 10 Have you smoked in the past 12 months: Yes Number of Cigarettes Smoked Daily: 20 Cigars Per Day: 0 Information on smoking cessation initiated: No 'Breaking Loose' booklet given: 08/27/17 Hx Alcohol Use: Yes (occasional) Drug/Substance Use Hx: Yes Substance Use Type: Alcohol, Cocaine, Heroin Hx Substance Use Treatment: Yes Cardiac Specific PMH - Complaint Specific PMHX Pacemaker: No *Physical Exam - Vital Signs Last Vital Signs Temp Pulse Resp BP Pulse Ox 98.8 F 80 18 131/100 97 05/03/19 17:59 05/03/19 17:59 05/03/19 17:59 05/03/19 17:59 05/03/19 17:59 ED Treatment Course - LABORATORY CBC & Chemistry Diagram: 05/03/19 19:00 05/03/19 19:00 - ADDITIONAL ORDERS Additional order review: Laboratory Results 05/03/19 19:00 Sodium 134 L Potassium 4.0 Chloride 97 L Carbon Dioxide 27 Anion Gap 9 BUN 6.6 L Creatinine 0.9 Est GFR (CKD-EPI)AfAm 131.44 Est GFR (CKD-EPI)NonAf 113.41 Random Glucose 96 Calcium 8.7 Total Bilirubin 0.4 AST 126 H ALT 85 H Alkaline Phosphatase 110 Creatine Kinase 319 H Creatine Kinase Index 1.1 CK-MB (CK-2) 3.6 Troponin I < 0.02 Total Protein 9.0 H Albumin 4.5 Lipase 90 05/03/19 19:00 RBC 4.68 MCV 92.7 MCHC 32.8 RDW 12.8 D MPV 7.3 L Neutrophils % 51.1 D Lymphocytes % 40.2 H D Monocytes % 6.9 Eosinophils % 1.1 D Basophils % 0.7 D Medical Decision Making - Medical Decision Making 05/03/19 19:16 Patient is a 33-year-old male with history of mild asthma, rotator cuff repair, here with complaints of chest pain occurring for about 3 to 4 days. He describes the pain as a clenching in his distal xiphoid, intermittently 7/10 yesterday was worse and today was unable to go to work due to his pain. States his symptoms are associated with feeling hot and cold, shaky all the time, and on edge for no reason. States he has been very stressed since about February when his grandmother . He has not been eating more than 1 meal a day. And feels to withdrawal from people in social contacts. He has been having intermittent dizziness described as spinning sensation mostly on getting up from bed. He apparently had been going through some issues with grandmother at the time of that, he did not attend her week, and then she was cremated. And he is bothered by those issues in addition the memories of his best friend who also grew up with his grandma committed suicide 2 years ago. States he thought he was over his best friend's but now it seems not to have been resolved. He expresses no suicidality or homicidality. DDX: Stress and anxiety, gastritis, low concerns for ACS. Will get labs include troponin, EKG.. EKG: SR at rate 83, NAD, no ST-T wave changes. 05/03/19 20:16 Labs reviewed noted to have slightly elevated AST and ALT, and was offered an ultrasound of his gallbladder. Dr. Bentley in the vertical area to talk to patient. Patient got very upset and offended about questions of his past history. He got very agitated and aggressive, pulled his IV out and walked out of the emergency room. Discharge - Discharge Information Problems reviewed: Yes Clinical Impression/Diagnosis: Chest pain Qualifiers: Chest pain type: unspecified Qualified Code(s): R07.9 - Chest pain, unspecified Condition: Stable Disposition: ELOPED - Follow up/Referral - Patient Discharge Instructions - Post Discharge Activity
[2019-05-03 19:15] LABS: BASO % 0.7 % (0-2.0); EOS % 1.1 % (0-4.5); HEMATOCRIT 43.4 % (35.4-49); HEMOGLOBIN 14.2 GM/dL (11.7-16.9); LYMPH % 40.2 % (8-40); MCH 30.4 pg (25.7-33.7); MCHC 32.8 g/dl (32.0-35.9); MEAN CELL VOLUME 92.7 fl (80-96); MEAN PLT VOLUME 7.3 fl (7.5-11.1); MONO % 6.9 % (3.8-10.2); NEUT % 51.1 % (42.8-82.8); PLATELET COUNT 264 K/MM3 (134-434); RBC 4.68 M/mm3 (4.00-5.60); RDW 12.8 % (11.9-15.9); WHITE BLOOD COUNT 6.4 K/mm3 (4.0-10.0)
[2019-05-03 19:37] LABS: ALBUMIN 4.5 g/dl (3.4-5.0); ALK PHOS 110 U/L (45-117); ANION GAP 9 MMOL/L (8-16); BILIRUBIN,TOTAL 0.4 mg/dL (0.2-1); BLOOD UREA NITROGEN 6.6 mg/dL (7-18); CALCIUM 8.7 mg/dL (8.5-10.1); CHLORIDE 97 mmol/L (98-107); CO2 27 mmol/L (21-32); CREATININE 0.9 mg/dL (0.55-1.3); GLUCOSE,RANDOM 96 mg/dL (74-106); LIPASE 90 U/L (73-393); SGOT/AST 126 U/L (15-37); SGPT/ALT 85 U/L (13-61); SODIUM 134 mmol/L (136-145)
--- NOTE | 2019-05-04 10:20 | EKG ---
Test Reason : Blood Pressure : / mmHG Vent. Rate : 083 BPM Atrial Rate : 083 BPM P-R Int : 152 ms QRS Dur : 098 ms QT Int : 390 ms P-R-T Axes : 036 066 059 degrees QTc Int : 458 ms NORMAL SINUS RHYTHM NORMAL ECG WHEN COMPARED WITH ECG OF 27-AUG-2017 14:29, NO SIGNIFICANT CHANGE WAS FOUND Confirmed by SIN TALBERT MD ([id number]) on 05/04/2019 10:20:00 AM Referred By: Confirmed By:SIN TALBERT MD
== END 2019-05-03 20:16 | disposition left against medical advice (07) ==
LOC: JER 17:54
DX: R07.9 Chest pain, unspecified (principal); J45.909 Unspecified asthma, uncomplicated; F31.9 Bipolar disorder, unspecified; Z88.0 Allergy status to penicillin; Z91.013 Allergy to seafood
CPT/HCPCS: 36415; 80053; 82550; 82553; 83690; 84484; 85025; 93005; 93010; 99282-25

== ENCOUNTER 2019-07-16 18:15 | Emergency (ER) | payer BC ==
[2019-07-16 18:21] VITALS: BP 159/99; PULSE 94; TEMP 98; BMI 37.1
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
== END 2019-07-16 20:00 | disposition left against medical advice (07) ==
LOC: JERFT 18:15
DX: M79.652 Pain in left thigh (principal); W21.89XA Striking against or struck by other sports equipment, initial encounter; Y93.89 Activity, other specified; Y92.89 Other specified places as the place of occurrence of the external cause; Y99.8 Other external cause status
CPT/HCPCS: 73552-TC-LT-FY; 99281-25

== ENCOUNTER 2019-09-07 14:27 | Inpatient (IN) | payer OTHER ==
[2019-09-07 18:00] VITALS: BMI 39.6
--- NOTE | 2019-09-07 18:55 | HP ---
CIWA Score Nausea/Vomitin-No Nausea/No Vomiting Muscle Tremors: None Anxiety: 3 Agitation: 1-Slight > Activity Paroxysmal Sweats: 3 Orientation: 0-Oriented Tacttile Disturbances: 0-None Auditory Disturbances: 0-None Visual Disturbances: 0-None Headache: 0-None Present CIWA-Ar Total Score: 7 - Admission Criteria OASAS Guidelines: Admission for Medically Managed Detox: Requires at least one of the followin. CIWA greater than 12 2. Seizures within the past 24 hours 3. Delirium tremens within the past 24 hours 4. Hallucinations within the past 24 hours 5. Acute intervention needed for co occurring medical disorder 6. Acute intervention needed for co occurring psychiatric disorder 7. Severe withdrawal that cannot be handled at a lower level of care (continued vomiting, continued diarrhea, abnormal vital signs) requiring intravenous medication and/or fluids 8. Admitting History and Physical - Admission History of Present Illness: Pt comes seeking detox from alcohol and benzos. Lost his job 1.5 weeks ago. 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 He was fired because he was going to work drunk. He states he's been buying benzos on the street. Was taking Xanax, klonopin. EtOH: First - 17 years old, Last - 12 pm today, . States he drinks because he feels depressed. Alcohol makes him feel better initially, but then makes him more depressed. Started drinking heavily in 2014 when a friend committed suicide. Usually has an eye-line tender flakeboard. Has withdrawn. Had shakes and sweating. Has blacked out, but not recently. Never had a seizure. Drinks 6 X 24oz beers & 1 L rum or Vodka. Is amenable to AA. Is amenable to therapy. Benzos: First at age 18, last use 09/05/2019. In a methadone program. 80mg dose. Had been weaned off methadone in the past using a blind taper (amount of placebo in his methadone was gradually increased over time) at a facility called [facility] in the [facility]. Used to use percocet (last use 5 years ago), then heroin (last use 2 months ago) . Has used marijuana on a daily basis. Last use 2 months ago. Has used cocaine around 2007. No longer using. Denies PCP. Has injected heroin in the past. Has done detox in the past. Tobacco: 1/2 ppd since age 17. Presently feels unwell. Feels feverish, decreased appetite, chills, clammy. Anxious, feels tremulous. Has not been eating well. Has not eaten today. Ate once yesterday. PMH: Asthma PSH: Psychiatric: Anxiety/Depression Meds: Albuterol inhaler All: PCN, shellfish - gets hives Soc: Was not able to cover rent. Left his apartment today. Moved his things into a storage unit with the help of his father. Will admit for detox for alcohol. Will give thiamine. - Smoking History Smoking history: Current every day smoker Have you smoked in the past 12 months: Yes Aproximately how many cigarettes per day: 10 - Alcohol/Substance Use Hx Alcohol Use: Yes (occasional) Admission [facility] Allergies/Adverse Reactions: Allergies Allergy/AdvReac Type Severity Reaction Status Date / Time Penicillins Allergy Severe Rash Verified 09/07/19 17:53 shellfish derived Allergy Severe Hives Verified 09/07/19 17:53 Patient History - Patient Medical History Hx Anemia: No Hx Asthma: Yes Hx Chronic Obstructive Pulmonary Disease (COPD): No Hx Cancer: No Hx Cardiac Disorders: No Hx Congestive Heart Failure: No Hx Hypertension: No Hx Hypercholesterolemia: No Hx Pacemaker: No HX Cerebrovascular Accident: No Hx Seizures: No Hx Dementia: No Hx Diabetes: No Hx Gastrointestinal Disorders: No Hx Liver Disease: No Hx Genitourinary Disorders: No Hx Sexually Transmitted Disorders: No Hx Renal Disease (ESRD): No Hx Thyroid Disease: No Hx Human Immunodeficiency Virus (HIV): No (negative hx) Hx Hepatitis C: No (negative) Hx Depression: Yes Hx Suicide Attempt: No Hx Bipolar Disorder: No Hx Schizophrenia: No - Patient Surgical History Past Surgical History: Yes Hx Neurologic Surgery: No Hx Cataract Extraction: No Hx Cardiac Surgery: No Hx Lung Surgery: No Hx Breast Surgery: No Hx Breast Biopsy: No Hx Abdominal Surgery: No Hx Appendectomy: No Hx Cholecystectomy: No Hx Genitourinary Surgery: No Hx Section: No Hx Orthopedic Surgery: Yes (2005) Anesthesia Reaction: No - PPD History Previous Implant?: Yes Documented Results: Negative w/o proof Implanted On Prior [facility] Admission?: Yes Date: 06/02/17 Results: 0 mm - Reproductive History Patient : No - Smoking Cessation Smoking history: Current every day smoker Have you smoked in the past 12 months: Yes Aproximately how many cigarettes per day: 10 Cigars Per Day: 0 Hx Chewing Tobacco Use: No Initiated information on smoking cessation: Yes 'Breaking Loose' booklet given: 09/07/19 - Substances abused Alcohol Substance route: Oral Frequency: Daily Amount used: 1 liter of rum/vodka Age of first use: 18 Date of last use: 09/07/19 Benzodiazepine (Klonopin) Substance route: Oral Frequency: Daily Amount used: 3 (2mg tabs) Age of first use: 20 Date of last use: 09/05/19 Alprazolam (Xanax) Substance route: Oral Frequency: Daily Amount used: 3 sticks Age of first use: 20 Date of last use: 09/05/19 Admission Physical Exam [facility] - Vital Signs Vital Signs: Vital Signs - 24 hr 09/07/19 17:54 Temperature 100.9 F H Pulse Rate 84 Respiratory 16 Rate Blood Pressure 153/101 H - Physical General Appearance: Yes: No Apparent Distress HEENTM: Yes: Within Normal Limits, EOMI, OLE Respiratory: Yes: Within Normal Limits, Chest Non-Tender, Lungs Clear, No Respiratory Distress Neck: Yes: Within Normal Limits, No masses,lesions,Nodules Cardiology: Yes: Within Normal Limits, Regular Rhythm, Regular Rate, S1, S2 Abdominal: Yes: Within Normal Limits, Normal Bowel Sounds, Non Tender, Flat, Soft Extremities: Yes: Normal Capillary Refill, Normal Range of Motion, Other ( hyperemic hands) Neurological: Yes: Within Normal Limits, roller mechanic II-XII NML intact, Fully Oriented, Motor Strength 5/5, Normal Mood/Affect Breathalyzer - Breathalyzer Breathalyzer: 0.118 Vital Signs - Vital Signs Vital signs refused: No Temperature: 100 F Temperature source: Oral Pulse Rate: 100 Respiratory Rate: 15 Blood Pressure: 153/101 Urine Drug Screen - Test Device Lot number: [id number] Expiration date: 06/27/21 - Control Is test valid?: Yes - Results Drug screen NEGATIVE: No Urine drug screen results: MTD-Methadone, BZO-Benzodiazepines Inpatient Rehab Admission - Rehab Decision to Admit Inpatient rehab admission?: No
--- NOTE | 2019-09-07 19:09 | PN ---
Teaching Attending Note Name of Resident: Ronny Wiseman ATTENDING PHYSICIAN STATEMENT I saw and evaluated the patient. I reviewed the resident's note and discussed the case with the resident. I agree with the resident's findings and plan as documented. SUBJECTIVE: 34 yo with OUD, on methadone 80mg/day, here for increased alcohol use and occ benzo use - requesting detox. Pt lost his job and now is nearly homeless OBJECTIVE: Vital Signs - 24 hr 09/07/19 09/07/19 17:54 19:03 Temperature 100.9 F H 100 F H Pulse Rate 84 100 H Respiratory 16 15 Rate Blood Pressure 153/101 H 153/101 H tremulous alert and oriented ASSESSMENT AND PLAN: AUD- to be admitted for alcohol detox- librium detox protocol OUD- continue methadone maintenance program
[2019-09-07] MEDS ORDERED: MAGNESIUM CITRATE 300 ML BOTTLE PO PRN (19:30)
[2019-09-07] MEDS ORDERED: MAGNESIUM HYDROX 2400MG/30ML ORAL SUSPENSION 30 ML CUP PO PRN (19:30)
[2019-09-07] MEDS ORDERED: IBUPROFEN 400 MG TABLET (FP) PO PRN (19:30)
[2019-09-07] MEDS ORDERED: MAG HYDROX/AL HYDROX/SIMETH 30 ML UNIT-DOSE CUP PO PRN (19:30)
[2019-09-07] MEDS ORDERED: chlordiazePOXIDE HCL 25 MG CAPSULE PO PRN (19:30)
[2019-09-07] MEDS ORDERED: ACETAMINOPHEN 325 MG TABLET (FP) PO PRN ×2 (19:30)
[2019-09-07] MEDS ORDERED: BISMUTH SUBSALICYLATE 524 MG/30 ML UD PO PRN (19:30)
[2019-09-07] MEDS ORDERED: MENTHOL/PHENOL 1 EACH UD MM PRN (19:30)
[2019-09-07] MEDS: THIAMINE HCL 100 MG TABLET (FP) PO SCH (21:32)
[2019-09-07] MEDS: chlordiazePOXIDE HCL 25 MG CAPSULE PO SCH (23:27)
[2019-09-08] MEDS: chlordiazePOXIDE HCL 25 MG CAPSULE PO SCH ×4 (05:53→22:32)
[2019-09-08] MEDS ORDERED: ONDANSETRON *ODT* 4 MG TABLET SL ONE (09:20)
[2019-09-08] MEDS ORDERED: LOPERAMIDE HCL 2 MG CAPSULE PO ONE (09:21)
--- NOTE | 2019-09-08 09:26 | PN ---
S CIWA - CIWA Score Nausea/Vomitin Muscle Tremors: 3 Anxiety: 2 Agitation: 1-Slight > Activity Paroxysmal Sweats: 2 Orientation: 0-Oriented Tacttile Disturbances: 0-None Auditory Disturbances: 0-None Visual Disturbances: 1-Very Mild Sensitivity Headache: 1-Very Mild CIWA-Ar Total Score: 12 S Progress Note (SOAP) Subjective: 34 years old male admitted on 09/07/19 for alcohol and benzo withdrawal sx management treating with librium detox regiment reports feeling nausea after breakfast able to tolerate 5am librium reports loose stool x 1 after breakfast imodium 8 mg po x 1 Objective: 09/08/19 09:25 Vital Signs Temperature 98.0 F 09/08/19 06:03 Pulse Rate 58 L 09/08/19 06:03 Respiratory Rate 18 09/08/19 06:03 Blood Pressure 120/81 09/08/19 06:03 O2 Sat by Pulse Oximetry (%) 09/08/19 09:25 lab pending Assessment: 09/08/19 09:25 alcohol and benzo withdrawal Plan: librium regiment methadone 80mg po daily
[2019-09-08] MEDS ORDERED: METHADONE HCL 40 MG DISPERSABLE TABLET PO ONE (10:00)
[2019-09-08] MEDS: PRENATAL VITAMINS W/ FOLIC ACID TABLET (FP) PO SCH (10:34)
[2019-09-08] MEDS: NICOTINE 21 MG/24 HOURS TOPICAL PATCH TD SCH (10:35)
[2019-09-08 10:41] LABS: HEMATOCRIT 41.2 % (35.4-49); HEMOGLOBIN 13.7 GM/dL (11.7-16.9); MCH 30.9 pg (25.7-33.7); MCHC 33.3 g/dl (32.0-35.9); MEAN CELL VOLUME 92.8 fl (80-96); MEAN PLT VOLUME 7.8 fl (7.5-11.1); PLATELET COUNT 211 K/MM3 (134-434); RBC 4.44 M/mm3 (4.00-5.60); RDW 13.5 % (11.9-15.9)
[2019-09-08 10:52] LABS: ALBUMIN 3.9 g/dl (3.4-5.0); BILIRUBIN,TOTAL 1.1 mg/dL (0.2-1); CALCIUM 9.4 mg/dL (8.5-10.1); TOT PROT 8.3 g/dl (6.4-8.2)
--- NOTE | 2019-09-08 12:29 | CONSULT ---
[facility] Psychiatric Consult - Data Date of interview: 09/08/19 Admission source: [facility] Identifying data: Readmission to [address] [place] [address] for this 34 y/o male self- referred for detoxification treatment. HERBERT issues : alcohol, opioid, cannabis, xanax, nicotine, cocaine. Patient is single without children, currently undomiciled, unemployed (lost his job two weeks ago because of ETOH intoxication at work) and supported on his savings + ocasional assistance from biological father. Substance Abuse History: Discussed with the patient. Details in current [facility] report as follows : Smoking history: Current every day smoker. Have you smoked in the past 12 months: Yes. Aproximately how many cigarettes per day: 10. Cigars Per Day: 0. Hx Chewing Tobacco Use: No. Initiated information on smoking cessation: Yes. 'Breaking Loose' booklet given: 09/07/19. - Substances abused. Alcohol. Substance route: Oral. Frequency: Daily. Amount used: 1 liter of rum/vodka. Age of first use: 18. Date of last use: 05/17. Benzodiazepine (Klonopin). Substance route: Oral. Frequency: Daily. Amount used: 3 (2mg tabs). Age of first use: 20. Date of last use: 03/17. Alprazolam (Xanax). Substance route: Oral. Frequency: Daily. Amount used: 3 sticks. Age of first use: 20. Date of last use: 09/05/19 Medical History: Medical profile is remarkable for bronchial asthma, obesity and history of orthosurgery for injury of rotator cuff (left shoulder). Psychiatric History: Patient had his first contact with the mental health system at age 16. Was diagnosed with MDD and Anxiety Disorder. Mr Mckeon reports a history of multiple psychiatric hospitalizations ([facility], [facility], [facility] in [facility]) . Patient is currently on methadone maintenance (80 mg/day) at the [facility] in [place]. No contact with psychiatrists for OPD care ( off medications for months). Patient used to be prescribed zoloft, gabapentin, trazodone, aripriprazole and paroxetine. Suicide history is remarkable for a serious attempt in 2009 (severe self-inflicted laceration of right wrist). Physical/Sexual Abuse/Trauma History: No reported history of abuse. Current stressors : homelessness, financial difficulties, addictions, unemployment and lack of vocational skills. Additional Comment: Urine drug screen results: MTD-Methadone, BZO- Benzodiazepines. Noted. Mental Status Exam - Mental Status Exam Alert and Oriented to: Time, Place, Person Cognitive Function: Good Patient Appearance: Well Groomed (obese) Mood: Sad, Withdrawn Affect: Mood Congruent, Constricted Patient Behavior: Fatigued, Appropriate, Cooperative Speech Pattern: Clear, Appropriate Voice Loudness: Normal Thought Process: Goal Oriented Thought Disorder: Not Present Hallucinations: Denies Suicidal Ideation: Denies Homicidal Ideation: Denies Insight/Judgement: Poor Sleep: Poorly, Difficulty falling asleep (requests trazodone at bedtime) Appetite: Good Gait/Station: Normal Psychiatric Findings - Problem List (Clear 1, 2,3) (1) Alcohol dependence with uncomplicated withdrawal Current Visit: Yes Status: Acute (2) Opioid dependence on agonist therapy Current Visit: Yes Status: Chronic (3) Sedative hypnotic or anxiolytic dependence Current Visit: Yes Status: Chronic (4) Nicotine dependence Current Visit: Yes Status: Chronic Qualifiers: Nicotine product type: cigarettes Substance use status: in withdrawal Qualified Code(s): F17.213 - Nicotine dependence, cigarettes, with withdrawal (5) Substance induced mood disorder Current Visit: Yes Status: Chronic (6) Insomnia Current Visit: Yes Status: Acute - Initial Treatment Plan Initial Treatment Plan: Psychoeducation. Detoxification in progress. Support. Sleep hygiene. AA/NA meetings. Patient declines to resume antidepressant medications with the exception of trazodone for insomnia. Ordered : trazodone 50 mg po hs. Side effects/benefits discussed with patient (made aware of risk of priapism). Consent (verbal) given to MD. Garzon.
[2019-09-08] MEDS: NICOTINE POLACRILEX 4 MG GUM BUC PRN ×2 (12:45→17:10)
[2019-09-08] MEDS: MELATONIN 5 MG TABLETS PO PRN (22:32)
[2019-09-08] MEDS: THIAMINE HCL 100 MG TABLET (FP) PO SCH (22:32)
[2019-09-08] MEDS: hydrOXYzine PAMOATE 25 MG CAPSULE (FP) PO PRN (22:32)
[2019-09-09] MEDS ORDERED: chlordiazePOXIDE HCL 25 MG CAPSULE PO SCH (05:00)
[2019-09-09] MEDS: METHADONE HCL 40 MG DISPERSABLE TABLET PO SCH (05:31)
[2019-09-09] MEDS: NICOTINE POLACRILEX 4 MG GUM BUC PRN ×5 (05:34→20:22)
[2019-09-09] MEDS ORDERED: LORazepam 1 MG TABLET PO PRN (09:42)
--- NOTE | 2019-09-09 09:50 | PN ---
S CIWA - CIWA Score Nausea/Vomitin-No Nausea/No Vomiting Muscle Tremors: 3 Anxiety: 4-Mod. Anxious/Guarded Agitation: 0-Normal Activity Paroxysmal Sweats: 2 Orientation: 0-Oriented Tacttile Disturbances: 0-None Auditory Disturbances: 0-None Visual Disturbances: 1-Very Mild Sensitivity Headache: 0-None Present CIWA-Ar Total Score: 10 BHS Progress Note (SOAP) Subjective: 34 years old male admitted on 09/07/19 for alcohol and benzo withdrawal sx management treating with librium detox regiment Mr Mckeon states that librium does not work well with him "oozing" restlessness anxiety insomnia discontinue librium begin ativan detox regiment belsomra 20 mg po x 1 hs Objective: 09/09/19 09:49 Vital Signs Temperature 98 F 09/09/19 09:21 Pulse Rate 77 09/09/19 09:21 Respiratory Rate 18 09/09/19 09:21 Blood Pressure 111/75 09/09/19 09:21 O2 Sat by Pulse Oximetry (%) Laboratory Last Values WBC 5.0 K/mm3 (4.0-10.0) 09/08/19 07:45 RBC 4.44 M/mm3 (4.00-5.60) 09/08/19 07:45 Hgb 13.7 GM/dL (11.7-16.9) 09/08/19 07:45 Hct 41.2 % (35.4-49) 09/08/19 07:45 MCV 92.8 fl (80-96) 09/08/19 07:45 MCH 30.9 pg (25.7-33.7) 09/08/19 07:45 MCHC 33.3 g/dl (32.0-35.9) 09/08/19 07:45 RDW 13.5 % (11.9-15.9) 09/08/19 07:45 Plt Count 211 K/MM3 (134-434) D 09/08/19 07:45 MPV 7.8 fl (7.5-11.1) 09/08/19 07:45 Sodium 134 mmol/L (136-145) L 09/08/19 07:45 Potassium 4.0 mmol/L (3.5-5.1) 09/08/19 07:45 Chloride 95 mmol/L (98-107) L 09/08/19 07:45 Carbon Dioxide 30 mmol/L (21-32) 09/08/19 07:45 Anion Gap 9 MMOL/L (8-16) 09/08/19 07:45 BUN 12.0 mg/dL (7-18) 09/08/19 07:45 Creatinine 1.0 mg/dL (0.55-1.3) 09/08/19 07:45 Est GFR (CKD-EPI)AfAm 114.91 09/08/19 07:45 Est GFR (CKD-EPI)NonAf 99.15 09/08/19 07:45 Random Glucose 87 mg/dL (74-106) 09/08/19 07:45 Calcium 9.4 mg/dL (8.5-10.1) 09/08/19 07:45 Total Bilirubin 1.1 mg/dL (0.2-1) H 09/08/19 07:45 AST 167 U/L (15-37) H 09/08/19 07:45 ALT 105 U/L (13-61) H 09/08/19 07:45 Alkaline Phosphatase 123 U/L (45-117) H 09/08/19 07:45 Total Protein 8.3 g/dl (6.4-8.2) H 09/08/19 07:45 Albumin 3.9 g/dl (3.4-5.0) 09/08/19 07:45 RPR Titer Nonreactive (NONREACTIVE) 09/08/19 07:45 HIV 1&2 Ag/Ab, 4th Gen Non reactive (Non Reactive) 09/08/19 09:00 HIV 1&2 Antibody Screen Cancelled 09/08/19 07:45 HIV P24 Antigen Cancelled 09/08/19 07:45 lab noted ast elevation continue ativan regiment Assessment: 09/09/19 09:50 alcohol and benzo withdrawal Plan: ativan regiment
[2019-09-09] MEDS: NICOTINE 21 MG/24 HOURS TOPICAL PATCH TD SCH (10:35)
[2019-09-09] MEDS: PRENATAL VITAMINS W/ FOLIC ACID TABLET (FP) PO SCH (10:38)
[2019-09-09] MEDS: LORazepam 0.5 MG TABLET PO SCH ×3 (10:38→22:16)
[2019-09-09] MEDS: LORazepam 1 MG TABLET PO PRN (13:20)
[2019-09-09] MEDS ORDERED: SUVOREXANT 20 MG TABLET PO ONE (22:00)
[2019-09-09] MEDS: THIAMINE HCL 100 MG TABLET (FP) PO SCH (22:16)
[2019-09-09] MEDS: MELATONIN 5 MG TABLETS PO PRN (22:19)
[2019-09-10] MEDS ORDERED: chlordiazePOXIDE HCL 10 MG CAPSULE PO PRN
[2019-09-10] MEDS ORDERED: chlordiazePOXIDE HCL 10 MG CAPSULE PO SCH (05:00)
[2019-09-10] MEDS: METHADONE HCL 40 MG DISPERSABLE TABLET PO SCH (05:40)
[2019-09-10] MEDS: LORazepam 0.5 MG TABLET PO SCH ×3 (05:42→22:19)
[2019-09-10] MEDS: NICOTINE POLACRILEX 4 MG GUM BUC PRN ×5 (05:42→20:45)
[2019-09-10] MEDS: LORazepam 1 MG TABLET PO PRN ×2 (09:07→17:23)
[2019-09-10] MEDS: PRENATAL VITAMINS W/ FOLIC ACID TABLET (FP) PO SCH (10:26)
[2019-09-10] MEDS: NICOTINE 21 MG/24 HOURS TOPICAL PATCH TD SCH (10:27)
--- NOTE | 2019-09-10 10:51 | PN ---
S CIWA - CIWA Score Nausea/Vomitin-No Nausea/No Vomiting Muscle Tremors: 3 Anxiety: 2 Agitation: 1-Slight > Activity Paroxysmal Sweats: 1-Minimal Palms Moist Orientation: 0-Oriented Tacttile Disturbances: 0-None Auditory Disturbances: 0-None Visual Disturbances: 0-None Headache: 1-Very Mild CIWA-Ar Total Score: 8 S Progress Note (SOAP) Subjective: 34 years old male admitted on 09/07/19 for alcohol and benzo withdrawal sx management treating with ativan detox regiment feeling ok today good hygiene encourage the patient to attend behavior and psychosocial therapies groups and meetings Objective: 09/10/19 10:52 Vital Signs Temperature 96.4 F L 09/10/19 08:49 Pulse Rate 83 09/10/19 08:49 Respiratory Rate 18 09/10/19 08:49 Blood Pressure 103/60 09/10/19 08:49 O2 Sat by Pulse Oximetry (%) Laboratory Last Values WBC 5.0 K/mm3 (4.0-10.0) 09/08/19 07:45 RBC 4.44 M/mm3 (4.00-5.60) 09/08/19 07:45 Hgb 13.7 GM/dL (11.7-16.9) 09/08/19 07:45 Hct 41.2 % (35.4-49) 09/08/19 07:45 MCV 92.8 fl (80-96) 09/08/19 07:45 MCH 30.9 pg (25.7-33.7) 09/08/19 07:45 MCHC 33.3 g/dl (32.0-35.9) 09/08/19 07:45 RDW 13.5 % (11.9-15.9) 09/08/19 07:45 Plt Count 211 K/MM3 (134-434) D 09/08/19 07:45 MPV 7.8 fl (7.5-11.1) 09/08/19 07:45 Sodium 134 mmol/L (136-145) L 09/08/19 07:45 Potassium 4.0 mmol/L (3.5-5.1) 09/08/19 07:45 Chloride 95 mmol/L (98-107) L 09/08/19 07:45 Carbon Dioxide 30 mmol/L (21-32) 09/08/19 07:45 Anion Gap 9 MMOL/L (8-16) 09/08/19 07:45 BUN 12.0 mg/dL (7-18) 09/08/19 07:45 Creatinine 1.0 mg/dL (0.55-1.3) 09/08/19 07:45 Est GFR (CKD-EPI)AfAm 114.91 09/08/19 07:45 Est GFR (CKD-EPI)NonAf 99.15 09/08/19 07:45 Random Glucose 87 mg/dL (74-106) 09/08/19 07:45 Calcium 9.4 mg/dL (8.5-10.1) 09/08/19 07:45 Total Bilirubin 1.1 mg/dL (0.2-1) H 09/08/19 07:45 AST 167 U/L (15-37) H 09/08/19 07:45 ALT 105 U/L (13-61) H 09/08/19 07:45 Alkaline Phosphatase 123 U/L (45-117) H 09/08/19 07:45 Total Protein 8.3 g/dl (6.4-8.2) H 09/08/19 07:45 Albumin 3.9 g/dl (3.4-5.0) 09/08/19 07:45 RPR Titer Nonreactive (NONREACTIVE) 09/08/19 07:45 HIV 1&2 Ag/Ab, 4th Gen Non reactive (Non Reactive) 09/08/19 09:00 HIV 1&2 Antibody Screen Cancelled 09/08/19 07:45 HIV P24 Antigen Cancelled 09/08/19 07:45 lab noted ast elevation repeat ast 09/11/19 09/10/19 10:53 Assessment: 09/10/19 10:54 alcohol and benzo withdrawal Plan: ativan regiment
[2019-09-10] MEDS: METHOCARBAMOL 500 MG TABLET PO PRN (22:19)
[2019-09-10] MEDS: hydrOXYzine PAMOATE 25 MG CAPSULE (FP) PO PRN (22:19)
[2019-09-10] MEDS: THIAMINE HCL 100 MG TABLET (FP) PO SCH (22:20)
[2019-09-11] MEDS ORDERED: chlordiazePOXIDE HCL 10 MG CAPSULE PO SCH (05:00)
[2019-09-11] MEDS: METHADONE HCL 40 MG DISPERSABLE TABLET PO SCH (05:16)
[2019-09-11] MEDS: LORazepam 0.5 MG TABLET PO SCH ×2 (05:17→17:29)
[2019-09-11] MEDS: NICOTINE POLACRILEX 4 MG GUM BUC PRN ×6 (05:19→21:17)
[2019-09-11] MEDS: NICOTINE 21 MG/24 HOURS TOPICAL PATCH TD SCH (10:23)
[2019-09-11] MEDS: PRENATAL VITAMINS W/ FOLIC ACID TABLET (FP) PO SCH (10:25)
[2019-09-11] MEDS: LORazepam 0.5 MG TABLET PO PRN ×2 (10:31→22:06)
--- NOTE | 2019-09-11 11:13 | PN ---
[facility] CIWA - CIWA Score Nausea/Vomitin-No Nausea/No Vomiting Muscle Tremors: None Anxiety: 1-Mildly Anxious Agitation: 1-Slight > Activity Paroxysmal Sweats: No Perspiration Orientation: 2-Disoriented Date<2 days Tacttile Disturbances: 0-None Auditory Disturbances: 0-None Visual Disturbances: 0-None Headache: 0-None Present CIWA-Ar Total Score: 4 S Progress Note (SOAP) Subjective: Feeling well, inquiring about discharge, would like to go to [facility] and has discussed plan with counselor Objective: 09/11/19 11:11 Laboratory Last Values WBC 5.0 K/mm3 (4.0-10.0) 09/08/19 07:45 RBC 4.44 M/mm3 (4.00-5.60) 09/08/19 07:45 Hgb 13.7 GM/dL (11.7-16.9) 09/08/19 07:45 Hct 41.2 % (35.4-49) 09/08/19 07:45 MCV 92.8 fl (80-96) 09/08/19 07:45 MCH 30.9 pg (25.7-33.7) 09/08/19 07:45 MCHC 33.3 g/dl (32.0-35.9) 09/08/19 07:45 RDW 13.5 % (11.9-15.9) 09/08/19 07:45 Plt Count 211 K/MM3 (134-434) D 09/08/19 07:45 MPV 7.8 fl (7.5-11.1) 09/08/19 07:45 Sodium 134 mmol/L (136-145) L 09/08/19 07:45 Potassium 4.0 mmol/L (3.5-5.1) 09/08/19 07:45 Chloride 95 mmol/L (98-107) L 09/08/19 07:45 Carbon Dioxide 30 mmol/L (21-32) 09/08/19 07:45 Anion Gap 9 MMOL/L (8-16) 09/08/19 07:45 BUN 12.0 mg/dL (7-18) 09/08/19 07:45 Creatinine 1.0 mg/dL (0.55-1.3) 09/08/19 07:45 Est GFR (CKD-EPI)AfAm 114.91 09/08/19 07:45 Est GFR (CKD-EPI)NonAf 99.15 09/08/19 07:45 Random Glucose 87 mg/dL (74-106) 09/08/19 07:45 Calcium 9.4 mg/dL (8.5-10.1) 09/08/19 07:45 Total Bilirubin 1.1 mg/dL (0.2-1) H 09/08/19 07:45 AST 343 U/L (15-37) H 09/11/19 07:25 ALT 105 U/L (13-61) H 09/08/19 07:45 Alkaline Phosphatase 123 U/L (45-117) H 09/08/19 07:45 Total Protein 8.3 g/dl (6.4-8.2) H 09/08/19 07:45 Albumin 3.9 g/dl (3.4-5.0) 09/08/19 07:45 RPR Titer Nonreactive (NONREACTIVE) 09/08/19 07:45 HIV 1&2 Ag/Ab, 4th Gen Non reactive (Non Reactive) 09/08/19 09:00 HIV 1&2 Antibody Screen Cancelled 09/08/19 07:45 HIV P24 Antigen Cancelled 09/08/19 07:45 Vital Signs Temperature 97.4 F L 09/11/19 08:35 Pulse Rate 84 09/11/19 08:35 Respiratory Rate 18 09/11/19 08:35 Blood Pressure 125/84 09/11/19 08:35 O2 Sat by Pulse Oximetry (%) PE Gnl: WDWN, in no distress Mental status: nl Motor: nl Assessment: 09/11/19 11:12 1. Alcohol use disorder 2. Opioud use disorder, on methadone maintenance Plan: 1. Continue Ativan withdrawal protocol 2. continue Methadone 80 mg daily 3. discuss discharge plan with counselor
[2019-09-11] MEDS: METHOCARBAMOL 500 MG TABLET PO PRN ×2 (14:31→22:07)
[2019-09-11] MEDS: hydrOXYzine PAMOATE 25 MG CAPSULE (FP) PO PRN ×2 (14:31→22:06)
[2019-09-11] MEDS ORDERED: ALBUTEROL SO4 HFA INHALER IH PRN (18:12)
[2019-09-11] MEDS: THIAMINE HCL 100 MG TABLET (FP) PO SCH (22:06)
[2019-09-12] MEDS ORDERED: LORazepam 0.5 MG TABLET PO ONE (05:00)
[2019-09-12] MEDS ORDERED: chlordiazePOXIDE HCL 10 MG CAPSULE PO ONE (05:00)
[2019-09-12] MEDS: METHADONE HCL 40 MG DISPERSABLE TABLET PO SCH (05:29)
[2019-09-12] MEDS: NICOTINE POLACRILEX 4 MG GUM BUC PRN ×2 (05:31→07:58)
[2019-09-12 10:00] VITALS: BP 124/81; PULSE 87; TEMP 98.9
--- NOTE | 2019-09-12 12:33 | DS ---
[facility] Detox Discharge Summary Admission Date: 09/07/19 Discharge Date: 09/12/19 - History Present History: Alcohol Dependence, Sedative Dependence Additional Comments: Pt is medically cleared and discharged today. Pt completed the detox protocol. Pt is encouraged to follow-up with an outpatient CD program and also to follow- up with her pmd. Pt verbalized understanding of the information given. Pt is alert and oriented x3 and in no respiratory distress. Pertinent Past History: h/o asthma, alcohol, and benzo use disorder. - Physical Exam Results Vital Signs: Vital Signs Temperature 98.9 F 09/12/19 08:39 Pulse Rate 87 09/12/19 08:39 Respiratory Rate 20 09/12/19 08:39 Blood Pressure 124/81 09/12/19 08:39 O2 Sat by Pulse Oximetry (%) Vital Signs 09/12/19 09/12/19 05:22 08:39 Temperature 96.9 F L 98.9 F Pulse Rate 62 87 Respiratory 18 20 Rate Blood Pressure 110/72 124/81 Laboratory Last Values WBC 5.0 K/mm3 (4.0-10.0) 09/08/19 07:45 RBC 4.44 M/mm3 (4.00-5.60) 09/08/19 07:45 Hgb 13.7 GM/dL (11.7-16.9) 09/08/19 07:45 Hct 41.2 % (35.4-49) 09/08/19 07:45 MCV 92.8 fl (80-96) 09/08/19 07:45 MCH 30.9 pg (25.7-33.7) 09/08/19 07:45 MCHC 33.3 g/dl (32.0-35.9) 09/08/19 07:45 RDW 13.5 % (11.9-15.9) 09/08/19 07:45 Plt Count 211 K/MM3 (134-434) D 09/08/19 07:45 MPV 7.8 fl (7.5-11.1) 09/08/19 07:45 Sodium 134 mmol/L (136-145) L 09/08/19 07:45 Potassium 4.0 mmol/L (3.5-5.1) 09/08/19 07:45 Chloride 95 mmol/L (98-107) L 09/08/19 07:45 Carbon Dioxide 30 mmol/L (21-32) 09/08/19 07:45 Anion Gap 9 MMOL/L (8-16) 09/08/19 07:45 BUN 12.0 mg/dL (7-18) 09/08/19 07:45 Creatinine 1.0 mg/dL (0.55-1.3) 09/08/19 07:45 Est GFR (CKD-EPI)AfAm 114.91 09/08/19 07:45 Est GFR (CKD-EPI)NonAf 99.15 09/08/19 07:45 Random Glucose 87 mg/dL (74-106) 09/08/19 07:45 Calcium 9.4 mg/dL (8.5-10.1) 09/08/19 07:45 Total Bilirubin 1.1 mg/dL (0.2-1) H 09/08/19 07:45 AST 343 U/L (15-37) H 09/11/19 07:25 ALT 105 U/L (13-61) H 09/08/19 07:45 Alkaline Phosphatase 123 U/L (45-117) H 09/08/19 07:45 Total Protein 8.3 g/dl (6.4-8.2) H 09/08/19 07:45 Albumin 3.9 g/dl (3.4-5.0) 09/08/19 07:45 RPR Titer Nonreactive (NONREACTIVE) 09/08/19 07:45 HIV 1&2 Ag/Ab, 4th Gen Non reactive (Non Reactive) 09/08/19 09:00 HIV 1&2 Antibody Screen Cancelled 09/08/19 07:45 HIV P24 Antigen Cancelled 09/08/19 07:45 Labs noted. Pertinent Admission Physical Exam Findings: withdrawal symptoms. - Treatment Hospital Course: Detox Protocol Followed, Detoxed Safely, Responded well, Discharged Condition Good - Medication Discharge Medications: Ambulatory Orders Albuterol Sulfate Inhaler - [Ventolin HFA Inhaler -] 2 inh PO Q4H PRN 08/27/17 - Diagnosis (1) Alcohol dependence with uncomplicated withdrawal Current Visit: Yes Status: Acute (2) Cocaine dependence Current Visit: Yes Status: Chronic (3) Marijuana dependence Current Visit: Yes Status: Chronic (4) Nicotine dependence Current Visit: Yes Status: Chronic Qualifiers: Nicotine product type: cigarettes Substance use status: in withdrawal Qualified Code(s): F17.213 - Nicotine dependence, cigarettes, with withdrawal (5) Opioid dependence on agonist therapy Current Visit: Yes Status: Chronic (6) Asthma Current Visit: No Status: Chronic Qualifiers: Asthma severity: mild Asthma persistence: unspecified Asthma complication type: uncomplicated Qualified Code(s): J45.909 - Unspecified asthma, uncomplicated - AMA Did Patient Leave Against Medical Advice: No
== END 2019-09-12 08:50 | disposition home or self-care (01) | DRG 773 ==
LOC: YASAS 14:27 → Y3N 20:13
PROVIDERS: ADMIT Allergy & Immunology; ATTEND Allergy & Immunology
PROC: HZ2ZZZZ Detoxification Services for Substance Abuse Treatment (ICD-10-PCS; principal; 2019-09-07)
DX: F10.230 Alcohol dependence with withdrawal, uncomplicated (principal); F13.230 Sedative, hypnotic or anxiolytic dependence with withdrawal, uncomplicated; F11.20 Opioid dependence, uncomplicated; F14.20 Cocaine dependence, uncomplicated; F12.20 Cannabis dependence, uncomplicated; F17.213 Nicotine dependence, cigarettes, with withdrawal; F19.24 Other psychoactive substance dependence with psychoactive substance-induced mood disorder; J45.909 Unspecified asthma, uncomplicated; G47.00 Insomnia, unspecified; E66.9 Obesity, unspecified; Z68.39 Body mass index [BMI] 39.0-39.9, adult; Z88.0 Allergy status to penicillin; Z91.013 Allergy to seafood; Z59.0 Homelessness
CPT/HCPCS: 36415; 80053; 84450; 85027; 86593; 87389; Q0162

== ENCOUNTER 2020-05-16 05:24 | Inpatient (IN) | payer OTHER ==
[~2020-05-16 05:24] MED LIST: chlordiazePOXIDE HCL 25 MG CAPSULE PO SCH
--- OUTSIDE RECORDS SUMMARY | 2020-05-16 05:28 | XMS ---
:1985 Author Organization [facility] Support Name Relationship Address Phone [employer] [place] [address] UE Unavailable Unavailable Unavailable PENELOPE MCKEON SISTER [address] [address] UNEMPLOYED Unavailable [address] [place] [address] KIMBERLI MCKEON [address] [place] [address] Care Team Providers Name Role Phone Figueroa Mckeon Unavailable [phone] Morales, Juanita Unavailable Unavailable Morales, Juanita Unavailable Unavailable Morales, Juanita Unavailable Unavailable Morales, Juanita Unavailable Unavailable Morales, Juanita Unavailable Unavailable Morales, Juanita Unavailable Unavailable Morales, Juanita Unavailable Unavailable Morales, Juanita Unavailable Unavailable Morales, Juanita Unavailable Unavailable Morales, Juanita Unavailable Unavailable ED STAFF PHYSICIAN, STAFF Unavailable Unavailable [facility], SVH9 Unavailable Unavailable ZUNASSIGNED Unavailable Unavailable Re-disclosure Warning The records that you are about to access may contain information from federally- assisted alcohol or drug abuse programs. If such information is present, then the following federally mandated warning applies: This information has been disclosed to you from records protected by federal confidentiality rules (42 CFR part 2). The federal rules prohibit you from making any further disclosure of this information unless further disclosure is expressly permitted by the written consent of the person to whom it pertains or as otherwise permitted by 42 CFR part 2. A general authorization for the release of medical or other information is NOT sufficient for this purpose. The Federal rules restrict any use of the information to criminally investigate or prosecute any alcohol or drug abuse patient.The records that you are about to access may contain highly sensitive health information, the redisclosure of which is protected by Article 27-F of the [facility] Public Health law. If you continue you may haveaccess to information: Regarding HIV / AIDS; Provided by facilities licensed or operated by the [facility] Office of Mental Health; or Provided by the [facility] Office for People With Developmental Disabilities. If such information is present, then the following [facility] mandated warning applies: This information has been disclosed to you from confidential records which are protected by state law. State law prohibits you from making any further disclosure of this information without the specific written consent of the person to whom it pertains, or as otherwise permitted by law. Any unauthorized further disclosure in violation of state law may result in a fine or alf sentence or both. A general authorization for the release of medical or other information is NOT sufficient authorization for further disclosure. Family History Family Member Family Member Family Member Date of Description Data Source(s) Name Gender Status Status Unknown Male Diagnosis 02/19/2019 [facility] 12:00:00 [facility] EDT Center) Encounters Encounter Providers Location Date Indications Data Source(s ) Emergency Attender: STAFF ED H-ER 05/14/2020 [facility] STAFF 04:05:00 PM Medical Veronica yeboah PHYSICIANAdmitter: EDT STAFF ED STAFF PHYSICIANReferrer: ZUNASSIGNED Outpatient Attender: SVH9 HHHV 09/15/2019 [facility] ([facility] 12:26:01 PM [facility] arabella EST Patient admitted. Outpatient 07/10/2019 02:38:00 [facility] Attender: [facility] 07/10/2019 11:30:00 [facility] ([facility] - 07/10/2019 [facility] 11:30:00 AM EST Center) Outpatient 07/10/2019 12:00:00 [facility] Outpatient 07/06/2019 02:49:00 [facility] Outpatient 07/06/2019 12:00:00 [facility] Center Attender: [facility] 07/02/2019 09:21:00 [facility] ([facility] - 07/02/2019 [facility] 09:21:00 AM EST Center) Outpatient Attender: Juanita Lagunas [facility]2019 [facility] Juanita CarmenReferrer: Juanita Morales Attender: [facility] 06/26/2019 12:45:00 [facility]EXT[facility] 06/26/2019 [facility] Medical 12:45:00 PM [facility] Center) Outpatient 06/26/2019 10:00:00 [facility] Outpatient 06/26/2019 12:00:00 [facility] Medications Medication Brand Start Product Dose Route Administrative Pharmacy [facility] Indications Reaction Description Data Name Date Form Instructions Instructions Source(s) Escitalopra Lexapr ORAL active Escital opram NEXTGEN m 10 MG o 2018 {tbl} 10 MG Oral ([facility] Oral Tablet mg 12:00: Tablet Geoff phs [Lexapro] tablet 00 AM [Lexapro] Me dical Lexapro 10 EST Center) mg tablet Escitalopra Lexapr ORAL complet Escita lopram NEXTGEN m 20 MG o 2018 {tbl} ed 20 MG Oral ([facility] Oral Tablet mg 12:00: Tablet Geoff phs [Lexapro] tablet 00 AM [Lexapro] Me dical Lexapro 20 EDT Center) mg tablet Insurance Providers Payer name Policy type Policy ID Covered Covered libertarian's Policy P zayra / Coverage libertarian ID relationship to Mckeon Inf ormation type mckeon MEDICAID [id number] SP [id number] [facility] [id number] 01 [id number] O BLUE CROSS O [id number] PENDING SP EXCHANGE BC OUT OF [id number] STATE SELF PAY SP INSURANCE BC HMO [id number] SP [id number] BLUE CROSS O [id number] [facility] O [id number] OPTIONS Superior [id number] S [id number] Vision MKD [facility] [id number] S [id number] Options MKD Dental [id number] S [id number] [employer] MKD Medicaid [id number] S [id number] Regular Clinic Visit MVP Medicaid [id number] S [id number] Managed Care Problems, Conditions, and Diagnoses Code Display Name Description Problem Type Effective Data Dates Source(s) Z11.3 Encounter for ENCNTR SCREEN FOR Diagnosis 06/26/2019 [facility] screening for INFECTIONS W SEXL 12:45:00 PM Roger carmona infections with a MODE OF TRANSMISS [facility] Medical [facility] sexual Cent er mode of transmission Z11.4 Encounter for ENCOUNTER FOR Diagnosis 06/26/2019 [facility] screening for human SCREENING FOR HUMAN 12:45:0 0 PM [facility] immunodeficiency IMMUNODEFICIENCY [facility] dical virus [HIV] VIRUS Center Z68.37 Body mass index BODY MASS INDEX Diagnosis 06/26/2019 [facility] (BMI) 37.0-37.9, (BMI) 37.0-37.9, 12:45:00 PM [facility] adult ADULT [facility] F41.9 Anxiety disorder, ANXIETY DISORDER, Diagnosis 06/26/2019 [facility] unspecified UNSPECIFIED 12:45:00 PM [facility] F32.9 Major depressive MAJOR DEPRESSIVE Diagnosis 06/26/2019 int disorder, single DISORDER, SINGLE 12:45:00 PM [facility] episode, unspecified EPISODE, UNSPECIFIED [facility] Z13.9 Encounter for ENCOUNTER FOR Diagnosis 06/26/2019 [facility] screening, SCREENING, 12:45:00 PM [facility] unspecified UNSPECIFIED [facility] Center Surgeries/Procedures Procedure Description Date Indications Data Source(s) ROUTINE VENIPUNCTURE 06/26/2019 [facility] ([facility] 12:00:00 AM EST - Medical Ce nter) 06/26/2019 12:00:00 AM EST Results ID Date Data Source Liver 06/26/2019 02:46:00 PM [facility] Profile.[id number] Name Value Range Interpretation Description Data Sup porting Code Source(s) Document(s ) Aspartate 17-59 Above high <content [facility] aminotransferase normal styleCode="Bold"> Mekhi hs [Enzymatic Aspartate Medical activity/volume] Aminotransferase Center in Serum or Plasma (AST) </content>148 IU/L H<content styleCode="Italic s"> (17-59 IU/L)</content> Alanine 7-50 Above high <content [facility] aminotransferase normal styleCode="Bold"> Mekhi hs [Enzymatic Alanine Medical activity/volume] Aminotransferase Center in Serum or Plasma (ALT) </content>121 IU/L H<content styleCode="Italic s"> (7-50 IU/L)</content> Bilirubin.total 0.2-1.3 <content [facility] [Mass/volume] in styleCode="Bold"> Mekhi hs Serum or Plasma Bilirubin Total Medical </content>0.3 Center MG/DL<content styleCode="Italic s"> (0.2-1.3 MG/DL)</content> Alkaline 38-126 <content [facility] phosphatase styleCode="Bold"> Brian [Enzymatic Alkaline Medical activity/volume] Phosphatase (ALP) Cente r in Serum or Plasma </content>91 IU/L<content styleCode="Italic s"> (38-126 IU/L)</content> UNK 0.0-0.3 <content Saint styleCode="Bold"> Brian Bilirubin, Direct Medical </content>< 0.2 Center MG/DL<content styleCode="Italic s"> (0.0-0.3 MG/DL)</content> Albumin 3.5-5.0 <content [facility] [Mass/volume] in styleCode="Bold"> Mekhi hs Serum or Plasma Albumin Medical </content>4.7 Center G/DL<content styleCode="Italic s"> (3.5-5.0 G/DL)</content> ID Date Data Source LIPID.[id number] 06/26/2019 02:46:00 PM EST [facility] Name Value Range Interpretation Description Data Sup porting Code Source(s) Document(s ) Cholesterol -<200 Above high normal <content [facility] [Mass/volume] styleCode="Bold"> Brian in Serum or Cholesterol Medical Plasma </content>212 Center MG/DL H<content styleCode="Italic s"> (-<200 MG/DL)</content> UNK > 60 Below low normal <content Saint styleCode="Bold"> Brian HDL- Cholesterol Medical </content>53 Center MG/DL L<content styleCode="Italic s"> (> 60 MG/DL)</content> Triglyceride < 150 Above high normal <content Saint [Mass/volume] styleCode="Bold"> Brian in Serum or Triglycerides Medical Plasma </content>361 Center MG/DL H<content styleCode="Italic s"> (< 150 MG/DL)</content> UNK <content Saint styleCode="Bold"> Brian LDL-Cholesterol Medical </content> Center (Reference Range: not available)
<c ontent styleCode="xLocal PreformattedText" >Triglycerides are >250 mg/dl; therefore, the LDL calculation is invalid.
Chol esterol electrophoresis is recommended if medically appropriate.</con tent> ID Date Data Source Hormones.[id number] 06/[facility] Name Value Range Interpretation Description Data Sup porting Code Source(s) Document(s ) Thyrotropin 0.465-4. <content Saint [Units/volume] 68 styleCode="Kenneth Brian in Serum or d">Thyroid Medical Plasma by Stimulating Center Detection Hormone limit <= 0.05 </content>1.42 mIU/L MIU/L<content styleCode="Luna lics"> (0.465-4.68 MIU/L)</conten t> ID Date Data Source HematologyRou.[id number] 06/26/2019 02:46:00 PM RAJANI Lyles nt [facility] 0500 Name Value Range Interpretation Description Data Sup porting Code Source(s) Document(s ) Leukocytes 4.4-11.0 <content Saint [#/volume] in styleCode="Bold Brian Blood by ">White Blood Medical Automated count Cell Count Center </content>5.72 KCUMM<content styleCode="Ital ics"> (4.4-11.0 KCUMM)</content > Erythrocytes 4.4-5.9 <content Saint [#/volume] in styleCode="Bold Brian Blood by ">Red Blood Medical Automated count Cell Count Center </content>4.45 MCUMM<content styleCode="Ital ics"> (4.4-5.9 MCUMM)</content > Hematocrit 41.0-53. <content Saint [Volume 0 styleCode="Bold Brian Fraction] of ">Hematocrit Medical Blood by </content>41.7 Center Automated count %<content styleCode="Ital ics"> (41.0-53.0 %)</content> Hemoglobin 13.5-17. <content Saint [Mass/volume] in 5 styleCode="Bold Brian Blood ">Hemoglobin Medical </content>13.5 Center G/DL<content styleCode="Ital ics"> (13.5-17.5 G/DL)</content> Erythrocyte mean 80.0-100 <content Saint corpuscular .0 styleCode="Bold Brian volume [Entitic ">Mean Medical volume] by Corpuscular Center Automated count Volume </content>93.7 FL<content styleCode="Ital ics"> (80.0-100.0 FL)</content> Erythrocyte mean 26.0-34. <content Saint corpuscular 0 styleCode="Bold Brian hemoglobin ">Mean Medical [Entitic mass] Corposcular Center by Automated Hemoglobin count </content>30.3 PG<content styleCode="Ital ics"> (26.0-34.0 PG)</content> Erythrocyte 11.5-14. <content Saint distribution 5 styleCode="Bold Brian width [Ratio] by ">Red Cell Medical Automated count Distribution Center Width </content>12.7 %<content styleCode="Ital ics"> (11.5-14.5 %)</content> Erythrocyte mean 32.0-37. <content Saint corpuscular 0 styleCode="Bold Brian hemoglobin ">Mean Corpus. Medical concentration Hgb Center [Mass/volume] by Concentration Automated count (MCHC) </content>32.4 G/DL<content styleCode="Ital ics"> (32.0-37.0 G/DL)</content> Platelets 130-400 <content Saint [#/volume] in styleCode="Bold Brian Blood by ">Platelet Medical Automated count Count Center </content>247 KCUMM<content styleCode="Ital ics"> (130-400 KCUMM)</content > Platelet mean 8.0-11.0 <content Saint volume [Entitic styleCode="Bold Brian volume] in Blood ">Mean Platelet Medical by Automated Volume Center count </content>9.5 FL<content styleCode="Ital ics"> (8.0-11.0 FL)</content> UNK 1.6-7.3 <content Saint styleCode="Bold Brian ">Neutrophil Medical Count Center </content>3.38 KCUMM<content styleCode="Ital ics"> (1.6-7.3 KCUMM)</content > Neutrophils 36-66 <content Saint [#/volume] in styleCode="Bold Brian Blood by ">Neutrophil Medical Automated count </content>59.2 Center %<content styleCode="Ital ics"> (36-66 %)</content> UNK 0.2-0.9 <content Saint styleCode="Bold Brian ">Monocyte Medical Count Center </content>0.44 KCUMM<content styleCode="Ital ics"> (0.2-0.9 KCUMM)</content > UNK 1.0-4.8 <content Saint styleCode="Bold Brian ">Lymphocyte Medical Count Center </content>1.77 KCUMM<content styleCode="Ital ics"> (1.0-4.8 KCUMM)</content > Lymphocytes 24.0-44. <content Saint [#/volume] in 0 styleCode="Bold Brian Blood by ">Lymphocyte Medical Automated count </content>30.9 Center %<content styleCode="Ital ics"> (24.0-44.0 %)</content> Monocytes 3.0-10.0 <content Saint [#/volume] in styleCode="Bold Brian Blood by ">Monocyte Medical Automated count </content>7.7 Center %<content styleCode="Ital ics"> (3.0-10.0 %)</content> Basophils 0.0-1.0 <content Saint [#/volume] in styleCode="Bold Brian Blood by ">Basophil Medical Automated count </content>0.7 Center %<content styleCode="Ital ics"> (0.0-1.0 %)</content> UNK 0.0-0.6 <content Saint styleCode="Bold Brian ">Eosinophil Medical Count Center </content>0.07 KCUMM<content styleCode="Ital ics"> (0.0-0.6 KCUMM)</content > Eosinophils 0-5.0 <content Saint [#/volume] in styleCode="Bold [facility] Blood by ">Eosinophil Medical Automated count </content>1.2 Center %<content styleCode="Ital ics"> (0-5.0 %)</content> UNK 0.0 <content Saint styleCode="Bold Brian ">Nucleated Red Medical Blood Cell Center Count </content>0.00 KCUMM<content styleCode="Ital ics"> (0.0 KCUMM)</content > UNK 0.0-0.3 <content Saint styleCode="Bold Brian ">Basophil Medical Count Center </content>0.04 KCUMM<content styleCode="Ital ics"> (0.0-0.3 KCUMM)</content > UNK 0-0.1 <content Saint styleCode="Bold Brian ">Immature Medical Granulocyte Center Count </content>0.02 KCUMM<content styleCode="Ital ics"> (0-0.1 KCUMM)</content > UNK 0 <content Saint styleCode="Bold Brian ">Nucleated Red Medical Blood Cell Center </content>0.0 /100<content styleCode="Ital ics"> (0 /100)</content> UNK < 1 <content Saint styleCode="Bold Brian ">Immature Medical Granulocyte Center Ratio </content>0.3 %<content styleCode="Ital ics"> (< 1 %)</content> ID Date Data Source GFR(Creatinine).[id number] 06/26/2019 02:46:00 PM RAJANI Rafal nt [facility] 0-0500 Name Value Range Interpretation Code Description Data Shruthi rce(s) Supporting Document(s ) UNK > 60 <content [facility] styleCode="Bold"> Medical Cent er EGFR </content>104 GFR<content styleCode="Italic s"> (> 60 GFR)</content> ID Date Data Source CHMROUTINECCDA.[id number] 06/26/2019 02:46:00 PM RAJANI taylor [facility] -0500 Name Value Range Interpretation Description Data Sup porting Code Source(s) Document(s ) UNK >= 1.0 <content Saint styleCode="Kenneth Brian d">AG Ratio Medical </content>1.3 Center <content styleCode="Luna lics"> (>= 1.0 )</content> Cannabinoids <content Saint [Presence] in styleCode="Kenneth [facility] Urine by Screen d">Cannabinoid Medical method >50 s Center ng/mL </content>NEGA TIVE NG/ML (Reference Range: not available)<br/ > Protein 6.3-8.2 Above high normal <content Saint [Mass/volume] styleCode="Kenneth Brian in Serum or d">Total Medical Plasma Protein Center </content>8.4 G/DL H<content styleCode="Luna lics"> (6.3-8.2 G/DL)</content > UNK 4.2-5.8 <content Saint styleCode="Kenneth Brian d">Hemoglobin Medical A1C Center </content>5.7 %<content styleCode="Luna lics"> (4.2-5.8 %)</content> UNK 2.3-3.5 Above high normal <content Saint styleCode="Kenneth Brian d">Globulin Medical </content>3.7 Center G/DL H<content styleCode="Luna lics"> (2.3-3.5 G/DL)</content > ID Date Data Source [facility].[id number] 06/26/2019 02:46:00 PM RAJANI Duran [facility] Name Value Range Interpretation Description Data Sup porting Code Source(s) Document(s ) Carbon dioxide, 22-30 <content Saint total styleCode="Bold"> Brian [Moles/volume] in Carbon Dioxide Medical Serum or Plasma </content>28 Center MEQ/L<content styleCode="Italic s"> (22-30 MEQ/L)</content> Potassium 3.5-5.3 <content Saint [Moles/volume] in styleCode="Bold"> [facility] Serum or Plasma Potassium Medical </content>4.3 Center MEQ/L<content styleCode="Italic s"> (3.5-5.3 MEQ/L)</content> Chloride 98-107 <content Saint [Moles/volume] in styleCode="Bold"> [facility] Serum or Plasma Chloride Medical </content>101 Center MEQ/L<content styleCode="Italic s"> (98-107 MEQ/L)</content> Sodium 137-145 <content Saint [Moles/volume] in styleCode="Bold"> [facility] Serum or Plasma Sodium Medical </content>141 Center MEQ/L<content styleCode="Italic s"> (137-145 MEQ/L)</content> UNK 9-20 Below low <content Saint normal styleCode="Bold"> Brian BUN </content>8 Medical MG/DL L<content Center styleCode="Italic s"> (9-20 MG/DL)</content> Glucose 74-106 <content Saint [Mass/volume] in styleCode="Bold"> Mekhi hs Serum or Plasma Glucose Medical </content>96 Center MG/DL<content styleCode="Italic s"> (74-106 MG/DL)</content> Calcium 8.4-10. <content Saint [Mass/volume] in 2 styleCode="Bold"> Mekhi hs Serum or Plasma Calcium Medical </content>9.7 Center MG/DL<content styleCode="Italic s"> (8.4-10.2 MG/DL)</content> Creatinine 0.5-1.3 <content Saint [Mass/volume] in styleCode="Bold"> Mekhi hs Serum or Plasma Creatinine Medical </content>0.9 Center MG/DL<content styleCode="Italic s"> (0.5-1.3 MG/DL)</content> Alkaline 38-126 <content Saint phosphatase styleCode="Bold"> Brian [Enzymatic Alkaline Medical activity/volume] Phosphatase (ALP) Cente r in Serum or Plasma </content>91 IU/L<content styleCode="Italic s"> (38-126 IU/L)</content> Alanine 7-50 Above high <content Saint aminotransferase normal styleCode="Bold"> Mekhi hs [Enzymatic Alanine Medical activity/volume] Aminotransferase Center in Serum or Plasma (ALT) </content>121 IU/L H<content styleCode="Italic s"> (7-50 IU/L)</content> UNK > 60 <content Saint styleCode="Bold"> Brian EGFR Medical </content>104 Center GFR<content styleCode="Italic s"> (> 60 GFR)</content> Aspartate 17-59 Above high <content Saint aminotransferase normal styleCode="Bold"> Mekhi hs [Enzymatic Aspartate Medical activity/volume] Aminotransferase Center in Serum or Plasma (AST) </content>148 IU/L H<content styleCode="Italic s"> (17-59 IU/L)</content> Bilirubin.total 0.2-1.3 <content Saint [Mass/volume] in styleCode="Bold"> Mekhi hs Serum or Plasma Bilirubin Total Medical </content>0.3 Center MG/DL<content styleCode="Italic s"> (0.2-1.3 MG/DL)</content> Albumin 3.5-5.0 <content Saint [Mass/volume] in styleCode="Bold"> Mekhi hs Serum or Plasma Albumin Medical </content>4.7 Center G/DL<content styleCode="Italic s"> (3.5-5.0 G/DL)</content> Procedure Social History Code Duration Value Status Description Data Source(s ) Smoking 05/14/2020 Daily Smoker completed Daily Smoker [facility] 04:30:00 PM EDT Medical C enter Smoking 05/14/2020 Daily Smoker completed Daily Smoker [facility] 04:21:00 PM EDT Medical C enter Smoking 05/14/2020 Daily Smoker completed Daily Smoker [facility] 04:12:00 PM EDT Medical C enter Caffeine Use 07/02/2019 completed NEXTGEN (Rafal nt Details 12:00:00 AM EST Brian [facility]) Smoking 07/02/2019 Unknown if completed Unknown if ever NEXTGEN ( Saint 12:00:00 AM EST ever smoked smoked [facility]) Vital Signs ID Date Data Source UNK Name Value Range Interpretation Code Description Data Source(s) Body temperature 36.490232 36.987586 Estefani [facility] Respiratory rate 18 /min 18 /min [facility] Oxygen saturation 98 % 98 % [facility] osephs in [facility] by Pulse oximetry Heart rate 80 /min 80 /min [facility] Diastolic blood 75 mm[Hg] 75 mm[Hg] [facility] Systolic blood 130 mm[Hg] 130 mm[Hg] [facility] Body weight 127.680676 127.023518 kg [facility] Measured kg [facility] Body temperature 36.947066 36.398895 Estefani [facility] Respiratory rate 19 /min 19 /min [facility] Oxygen saturation 99 % 99 % [facility] osephs in [facility] by Pulse oximetry Heart rate 86 /min 86 /min [facility] Body height 170.517369 170.153875 cm [facility] Diastolic blood 75 mm[Hg] 75 mm[Hg] [facility] Systolic blood 137 mm[Hg] 137 mm[Hg] [facility] Body mass index 43.8 kg/m2 43.8 kg/m2 [facility] (BMI) [Ratio] Medical [address] Diastolic blood 79 mm[Hg] 79 mm[Hg] [facility]) Systolic blood 128 mm[Hg] 128 mm[Hg] NEXTGEN (S aint pressure [facility]) Oxygen saturation 96 % 96 % [facility] in Arterial blood [facility] by Pulse oximetry Center) Body mass index 39.87 kg/m2 Overweight 39.87 kg/m2 NEXTGEN ([facility] (BMI) [Ratio] [facility]) Respiratory rate 20 /min 20 /min NEXTGEN ([facility]) Body temperature 36.83 Estefani 36.83 Estefani [facility] Heart rate 95 /min 95 /min NEXTGEN ([facility]) Diastolic blood 92 mm[Hg] 92 mm[Hg] NEXTGEN ( [facility]) Systolic blood 138 mm[Hg] 138 mm[Hg] [facility] (S aint pressure [facility]) Body weight 112.037 kg 112.037 kg [facility]) Body height 167.64 cm 167.64 cm [facility]) Patient Treatment Plan of Care Planned Activity Planned Date Details Description Data Source (s) Escitalopram 10 MG Oral 06/26/2019 12:00:00 [facility] ([facility] Tablet [Lexapro] AM [facility]) Escitalopram 20 MG Oral 02/19/2019 12:00:00 [facility] (Saint Tablet [Lexapro] AM [facility])
--- NOTE | 2020-05-16 06:23 | HP ---
COWS - Scale Resting Pulse: 1= TX 81-100 Sweatin= Beads of Sweat on Face Restless Observation: 1= Difficult to Sit Still Pupil Size: 0= Normal to Room Light Bone or Joint Aches: 0= None Runny Nose/ Eye Tearin= Nasal Congestion GI Upset > 30mins: 3= Vomiting/Diarrhea Tremor Observation: 1= Tremor [place], Not Seen Yawning Observation: 0= None Anxiety or Irritability: 4=Extreme Anxiety Goose Flesh Skin: 3=Piloerection COWS Score: 17 CIWA Score Nausea/Vomitin Muscle Tremors: 1-None Visible, but [place] Anxiety: 4-Mod. Anxious/Guarded Agitation: 4-Moderately Restless Paroxysmal Sweats: 4-Forehead w/Sweat Beads Orientation: 1-Uncertain about Date Tacttile Disturbances: 2-Mild Itch/Numbness/Burn Auditory Disturbances: 0-None Visual Disturbances: 0-None Headache: 4-Moderately Severe (8/10) CIWA-Ar Total Score: 25 - Admission Criteria OASAS Guidelines: Admission for Medically Managed Detox: Requires at least one of the followin. CIWA greater than 12 2. Seizures within the past 24 hours 3. Delirium tremens within the past 24 hours 4. Hallucinations within the past 24 hours 5. Acute intervention needed for co occurring medical disorder 6. Acute intervention needed for co occurring psychiatric disorder 7. Severe withdrawal that cannot be handled at a lower level of care (continued vomiting, continued diarrhea, abnormal vital signs) requiring intravenous medication and/or fluids 8. Admitting History and Physical - Smoking History Smoking history: Current every day smoker Have you smoked in the past 12 months: Yes Aproximately how many cigarettes per day: 10 - Alcohol/Substance Use Hx Alcohol Use: Yes (occasional) Admission [facility] Chief Complaint: C/O WITHDRAWAL SX'S. SEEKING DETOX Allergies/Adverse Reactions: Allergies Allergy/AdvReac Type Severity Reaction Status Date / Time Penicillins Allergy Severe Rash Verified 09/07/19 17:53 shellfish derived Allergy Severe Hives Verified 09/07/19 17:53 History of Present Illness: 34 Y.O. MALE HERE FOR ALCOHOL AND HEROIN DETOX. CLIENT IS SELF REFERRED. KNOWN TO PROGRAM. LAST ADM 09/07/19-09/12/19. RELAPSING 3 MONTHS AGO AFTER LEAVING A RESIDENTIAL PROGRAM. CLIENT REPORTS DAILY USE OF ALCOHOL AND HEROIN. + EYE DISABILITY REPRESENTATIVE. LAST USE A FEW HOURS AGO. REPORTS HX/O IVDU BUT CURRENT SNIFFING. + HX/O BLACKOUTS, DENIES HX/O OVERDOSE. REPORTS MOST RECENT CLEAN TIME 6 MONTHS. LIVES ALONE, UNEMPLOYED, DENIES LEGALS. Exam Limitations: No Limitations - Ebola screening Have you traveled outside of the country in the last 21 days: No Have you had contact with anyone from an Ebola affected area: No Have you been sick,other than usual withdrawal symptoms: No Do you have a fever: No - Review of Systems Constitutional: Chills, Loss of Appetite, Night Sweats, Changes in sleep EENT: reports: Nose Congestion, Other (RINORRHEA) Respiratory: reports: No Symptoms reported Cardiac: reports: No Symptoms Reported GI: reports: Nausea, Poor Appetite, Poor Fluid Intake, Vomiting : reports: Other (ED, HESITANCY W/ URINATION) Musculoskeletal: reports: No Symptoms Reported Integumentary: reports: Sweating, Other (GOOS BUMPS) Neuro: reports: Headache, Tremors Endocrine: reports: No Symptoms Reported Hematology: reports: No Symptoms Reported Psychiatric: reports: Anxious, Depressed (DENIES SI/HI/AVH) Other Systems: Reviewed and Negative Patient History - Patient Medical History Hx Anemia: No Hx Asthma: Yes Hx Chronic Obstructive Pulmonary Disease (COPD): No Hx Cancer: No Hx Cardiac Disorders: No Hx Congestive Heart Failure: No Hx Hypertension: No Hx Hypercholesterolemia: No Hx Pacemaker: No HX Cerebrovascular Accident: No Hx Seizures: No Hx Dementia: No Hx Diabetes: No Hx Gastrointestinal Disorders: No Hx Liver Disease: No Hx Genitourinary Disorders: No Hx Sexually Transmitted Disorders: No Hx Renal Disease (ESRD): No Hx Thyroid Disease: No Hx Human Immunodeficiency Virus (HIV): No (negative hx) Hx Hepatitis C: No (negative) Hx Depression: Yes Hx Suicide Attempt: No Hx Bipolar Disorder: No Hx Schizophrenia: No Other Medical History: ANXIETY - Patient Surgical History Past Surgical History: Yes Hx Neurologic Surgery: No Hx Cataract Extraction: No Hx Cardiac Surgery: No Hx Lung Surgery: No Hx Breast Surgery: No Hx Breast Biopsy: No Hx Abdominal Surgery: No Hx Appendectomy: No Hx Cholecystectomy: No Hx Genitourinary Surgery: No Hx Section: No Hx Orthopedic Surgery: Yes (2005) Anesthesia Reaction: No - PPD History Previous Implant?: Yes Documented Results: Negative w/proof Implanted On Prior [facility] Admission?: Yes Date: 09/10/19 Results: 0 mm PPD to be Administered?: No - Smoking Cessation Smoking history: Current every day smoker Have you smoked in the past 12 months: Yes Aproximately how many cigarettes per day: 30 Cigars Per Day: 0 Hx Chewing Tobacco Use: No Initiated information on smoking cessation: Yes 'Breaking Loose' booklet given: 05/16/20 - Substance & Tx. History Hx Alcohol Use: Yes Hx Substance Use: Yes Substance Use Type: Alcohol, Heroin Hx Substance Use Treatment: Yes ([facility]) - Substances abused Heroin Substance route: Inhalation Frequency: Daily Amount used: 5 Age of first use: 20 Date of last use: 05/15/20 (4) Alcohol Other (specify): RUM Substance route: Oral Frequency: Daily Amount used: "ALOT" Age of first use: 18 Date of last use: 05/15/20 Cocaine Substance route: Inhalation Frequency: Daily Amount used: 2GMS Age of first use: 23 Date of last use: 05/15/20 Admission Physical Exam [facility] Physical General Appearance: Yes: Moderate Distress, Tremorous, Sweating, Anxious, Other (CRYING, DEPRESSED AFFECT) HEENTM: Yes: EOMI, Normocephalic, Normal Voice, OLE, Pharynx Normal, Nasal Congestion, Rhinorrhea Respiratory: Yes: Chest Non-Tender, Lungs Clear, Normal Breath Sounds, No Respiratory Distress, No Accessory Muscle Use Neck: Yes: No masses,lesions,Nodules, Supple, Trachea in good position Breast: Yes: Breasts Symetrical, Other (SMALL ROUND LUMP NOTED TO R CHEST WALL) Cardiology: Yes: Regular Rhythm, S1, S2, Tachycardia Abdominal: Yes: Normal Bowel Sounds, Non Tender, Soft, Protuberent Genitourinary: Yes: Hesitency (REPORTED) Back: Yes: Normal Inspection Musculoskeletal: Yes: full range of Motion, Gait Steady Extremities: Yes: Normal Range of Motion, Non-Tender, Tremors, Other (TRACE OF EDEMA TO BLE) Neurological: Yes: Alert, Motor Strength 5/5, Depressed Affect Integumentary: Yes: Warm (FLUSHED AND SWEATY), Other (HEALING BLISTERS NOTED TO BOTH FEET/ GREAT TOES) Lymphatic: Yes: Within Normal Limits - Diagnostic (1) Alcohol dependence with uncomplicated withdrawal Current Visit: Yes Status: Acute (2) Alcohol-induced mood disorder Current Visit: Yes Status: Chronic (3) Alcohol-induced sleep disorder Current Visit: Yes Status: Chronic (4) Anxiety and depression Current Visit: Yes Status: Chronic (5) Opioid dependence with withdrawal Current Visit: Yes Status: Acute (6) Asthma Current Visit: Yes Status: Chronic Qualifiers: Asthma severity: mild Asthma persistence: intermittent Asthma complication type: uncomplicated Qualified Code(s): J45.20 - Mild intermittent asthma, uncomplicated (7) Cocaine dependence Current Visit: Yes Status: Acute Qualifiers: Substance use status: uncomplicated Qualified Code(s): F14.20 - Cocaine dependence, uncomplicated (8) Nicotine dependence Current Visit: Yes Status: Chronic Qualifiers: Nicotine product type: cigarettes Substance use status: uncomplicated Qualified Code(s): F17.210 - Nicotine dependence, cigarettes, uncomplicated (9) Substance induced mood disorder Current Visit: Yes Status: Suspected Cleared for Admission [facility] - Detox or Rehab S Level of Care: Medically Managed Detox Regimen/Protocol: Methadone/Librium Claeared for Rehab Admission: No Breathalyzer - Breathalyzer Breathalyzer: 0.118 Vital Signs - Vital Signs Vital signs refused: No Temperature: 97.3 F Temperature source: Oral Pulse Rate: 91 Respiratory Rate: 18 Blood Pressure: 136/86 Blood Pressure position: Sitting - Height Height: 5 ft 7 in - Weight Weight: 127.006 kg Weight measurement method: Stated by patient - BMI Body Mass Index (BMI): 43.8 - Bowel Function Bowel Movement: No Urine Drug Screen - Control Is test valid?: Yes - Results Drug screen NEGATIVE: No Urine drug screen results: ROBY-Cocaine, MOP-Opiates Inpatient Rehab Admission - Rehab Decision to Admit Inpatient rehab admission?: No
[2020-05-16] MEDS ORDERED: ACETAMINOPHEN 325 MG TABLET (FP) PO PRN ×2 (06:35)
[2020-05-16] MEDS ORDERED: guaiFENesin 200 MG/10 ML 10 ML UNIT-DOSE CUPS PO PRN (06:35)
[2020-05-16] MEDS ORDERED: METHADONE HCL 10 MG TABLET (FOR DETOX USE ONLY) PO ONE (06:35)
[2020-05-16] MEDS ORDERED: MAGNESIUM CITRATE 300 ML BOTTLE PO PRN (06:35)
[2020-05-16] MEDS ORDERED: cloNIDine HCL 0.1 MG TABLET PO PRN (06:35)
[2020-05-16] MEDS ORDERED: ONDANSETRON *ODT* 4 MG TABLET SL PRN (06:35)
[2020-05-16] MEDS ORDERED: chlordiazePOXIDE HCL 25 MG CAPSULE PO PRN (06:35)
[2020-05-16] MEDS ORDERED: P-EPHED 60MG/TRIPROLIDI 2.5MG TABLET PO PRN (06:35)
[2020-05-16] MEDS ORDERED: NALOXONE HCL 0.4 MG/ML VIAL IM PRN (06:35)
[2020-05-16] MEDS ORDERED: BISMUTH SUBSALICYLATE 524 MG/30 ML UD PO PRN (06:35)
[2020-05-16] MEDS ORDERED: MAG HYDROX/AL HYDROX/SIMETH 30 ML UNIT-DOSE CUP PO PRN (06:35)
[2020-05-16] MEDS ORDERED: MAGNESIUM HYDROX 2400MG/30ML ORAL SUSPENSION 30 ML CUP PO PRN (06:35)
[2020-05-16] MEDS ORDERED: MENTHOL/PHENOL 1 EACH UD MM PRN (06:35)
[2020-05-16] MEDS ORDERED: hydrOXYzine PAMOATE 25 MG CAPSULE (FP) PO PRN (06:35)
[2020-05-16] MEDS ORDERED: DICYCLOMINE HCL 10 MG CAPSULE PO PRN (06:35)
--- OUTSIDE RECORDS SUMMARY | 2020-05-16 06:41 | XMS ---
:1985 Author Organization [facility] Support Name Relationship Address Phone [employer] [place] [place] [address] UE Unavailable Unavailable Unavailable PENELOPE MCKEON SISTER [address] [address] UNEMPLOYED Unavailable [address] [place] [address] KIMBERLI MCKEON [address] [place] [address] Care Team Providers Name Role Phone Figueroa Mckeon Unavailable [phone] Morales, Juanita Unavailable Unavailable Morales, Juanita Unavailable [...] is protected by Article 27-F of the [facility] Public Health law. If you continue you may haveaccess to information: Regarding HIV / AIDS; Provided by facilities licensed or operated by the [facility] Office of Mental Health; or Provided by the [facility] Office for People With Developmental Disabilities. If such information is present, then the following [facility] mandated warning applies: This information has [...] law may result in a fine or detention sentence or both. A general authorization for the release of medical or other information is NOT sufficient authorization for further disclosure. Family History Family Member Family Member Family Member Date of Description Data Source(s) Name Gender Status Status Unknown Male Diagnosis 02/19/2019 [facility] ([facility] 12:00:00 [facility] EDT Center) Encounters Encounter Providers Location Date Indications Data Source(s ) Emergency Attender: STAFF ED H-ER 05/14/2020 [facility] STAFF 04:05:00 PM Medical Veronica yeboah PHYSICIANAdmitter: EDT STAFF ED STAFF PHYSICIANReferrer: ZUNASSIGNED Outpatient Attender: SVH9 HHHV 09/15/2019 [facility] Patient admitted. Outpatient 07/10/2019 02:38:00 [facility] Att[facility] 07/10/2019 11:30:00 [facility] ([facility] - 07/10/2019 [facility] 11:30:00 AM EST Center) Outpatient 07/10/2019 12:00:00 [facility] Outpatient 07/06/2019 02:49:00 [facility] Outpatient 07/06/2019 12:00:00 [facility] Attender: [facility] 07/02/2019 09:21:00 [facility] ([facility] - 07/02/2019 [facility] 09:21:00 AM EST Center) Outpatient Attender: Juanita Lagunas 06/26/2019 12:45:00 PsychiatricAdmitter: EST Medical Ce nter Juanita CarmenReferrer: Juanita Morales Attender: [facility] 06/26/2019 12:45:00 [facility] - 06/26/2019 Geoff [facility] Medical 12:45:00 PM [facility] Center) Outpatient 06/26/2019 10:00:00 [facility] Outpatient 06/26/2019 12:00:00 [facility] Medications Medication Brand Start Product Dose Route Administrative Pharmacy [facility] Indications Reaction Description Data Name Date Form [...] name Policy type Policy ID Covered Covered democrat's Policy P zayra / Coverage democrat ID relationship to Mckeon Inf ormation type mckeon MEDICAID [id number] SP [id number] [facility] W [id number] 01 [id number] O BLUE CROSS O [id number] 01 [id number] PENDING SP EXCHANGE BC OUT OF [id number] STATE SELF PAY SP INSURANCE BC HMO [id number] SP [id number] BLUE CROSS O [id number] 01 [id number] [facility] O [id number] 01 [id number] OPTIONS [place] [id number] S [id number] Vision [facility]D [facility] [id number] S [id number] Options MKD Dental [id number] S [id number] 300 [employer] MKD Medicaid [id number] S [id number] Regular Clinic Visit MVP Medicaid [id number] S [id number] Managed Care Problems, Conditions, and Diagnoses Code Display Name Description Problem Type Effective Data Dates Source(s) Z11.3 Encounter for ENCNTR SCREEN FOR Diagnosis 06/26/2019 [facility] screening for INFECTIONS W SEXL 12:45:00 PM Roger carmona infections with a MODE OF TRANSMISS [facility] Medical [facility] sexual Cent er mode of transmission Z11.4 Encounter for ENCOUNTER FOR Diagnosis 06/26/2019 [facility] screening for human SCREENING FOR HUMAN 12:45:0 0 PM [facility] immunodeficiency IMMUNODEFICIENCY [facility] dical virus [HIV] VIRUS Center Z68.37 Body mass index BODY MASS INDEX Diagnosis 06/26/2019 [facility] (BMI) 37.0-37.9, (BMI) 37.0-37.9, 12:45:00 PM Bri [facility] adult ADULT [facility] F41.9 Anxiety disorder, ANXIETY DISORDER, Diagnosis 06/26/2019 [facility] unspecified UNSPECIFIED 12:45:00 PM [facility] F32.9 Major depressive MAJOR DEPRESSIVE Diagnosis 06/26/2019 int disorder, single DISORDER, SINGLE 12:45:00 PM Bri [facility] episode, unspecified EPISODE, UNSPECIFIED [facility] Z13.9 Encounter for ENCOUNTER FOR Diagnosis 06/26/2019 [facility] screening, SCREENING, 12:45:00 PM [facility] unspecified UNSPECIFIED [facility] Surgeries/Procedures Procedure Description Date Indications Data Source(s) ROUTINE VENIPUNCTURE 06/26/2019 [facility] ([facility] 12:00:00 AM EST - Medical Ce nter) 06/26/2019 12:00:00 AM EST Results ID Date Data Source Liver 06/26/2019 02:46:00 PM [facility] Profile.[id number] Name Value Range Interpretation Description Data Sup porting Code Source(s) Document(s ) Aspartate 17-59 Above high <content [facility] aminotransferase normal styleCode="Bold"> Mekhi hs [Enzymatic Aspartate Medical activity/volume] Aminotransferase Center in Serum or Plasma (AST) </content>148 IU/L H<content styleCode="Italic s"> (17-59 IU/L)</content> Alanine 7-50 Above high <content [facility] aminotransferase normal styleCode="Bold"> Mekhi hs [Enzymatic Alanine [...] s"> (3.5-5.0 G/DL)</content> ID Date Data Source LIPID.[id number] 06/26/2019 02:46:00 PM EST [facility] Name Value Range Interpretation Description Data [...] medically appropriate.</con tent> ID Date Data Source [id number] 06/26/2019 02:46:00 [facility] Name Value Range Interpretation Description Data Sup porting Code Source(s) Document(s ) Thyrotropin 0.465-4. <content [facility] [Units/volume] 68 styleCode="Kenneth Brian in Serum or d">Thyroid Medical Plasma by Stimulating Center Detection Hormone limit <= 0.05 </content>1.42 mIU/L MIU/L<content styleCode="Luna lics"> (0.465-4.68 MIU/L)</conten t> ID Date Data Source HematologyRou.[id number] 06/26/2019 02:46:00 PM RAJANI Lyles nt [facility] 0500 Name Value Range Interpretation Description Data [...] Eosinophils 0-5.0 <content [facility] [#/volume] in styleCode="Bold [facility] Blood by ">Eosinophil Medical Automated count </content>1.2 [...] (< 1 %)</content> ID Date Data Source GFR(Creatinine).[id number] 06/26/2019 02:46:00 PM RAJANI Rafal nt [facility] 0-0500 Name Value Range Interpretation Code Description Data Shruthi rce(s) Supporting Document(s ) UNK > 60 <content [facility] styleCode="Bold"> Medical Cent er EGFR </content>104 GFR<content styleCode="Italic s"> (> 60 GFR)</content> ID Date Data Source CHMROUTINECCDA.[id number] 06/26/2019 02:46:00 PM RAJANI taylor [facility] -0500 Name Value Range Interpretation Description Data Sup porting Code Source(s) Document(s ) UNK >= 1.0 <content [facility] styleCode="Kenneth Brian d">AG Ratio Medical </content>1.3 Center <content styleCode="Luna lics"> (>= 1.0 )</content> Cannabinoids <content [facility] [Presence] in styleCode="Kenneth [facility] Urine by Screen d">Cannabinoid Medical method >50 [...] (2.3-3.5 G/DL)</content > ID Date Data Source [facility].[id number] 06/26/2019 02:46:00 PM RAJANI Duran [facility] Name Value Range Interpretation Description Data Sup porting Code Source(s) Document(s ) Carbon dioxide, 22-30 <content [facility] total styleCode="Bold"> Brian [Moles/volume] in Carbon Dioxide Medical Serum or Plasma </content>28 Center MEQ/L<content styleCode="Italic s"> (22-30 MEQ/L)</content> Potassium 3.5-5.3 <content [facility] [Moles/volume] in styleCode="Bold"> Geoff [facility] Serum or Plasma Potassium Medical </content>4.3 Center MEQ/L<content styleCode="Italic s"> (3.5-5.3 MEQ/L)</content> Chloride 98-107 <content [facility] [Moles/volume] in styleCode="Bold"> Geoff [facility] Serum or Plasma Chloride Medical </content>101 Center MEQ/L<content styleCode="Italic s"> (98-107 MEQ/L)</content> Sodium 137-145 <content [facility] [Moles/volume] in styleCode="Bold"> Geoff [facility] Serum or Plasma Sodium Medical [...] Daily Smoker completed Daily Smoker Saint Tellez [facility] 04:30:00 PM EDT Medical C enter Smoking 05/14/2020 Daily Smoker completed Daily Smoker [facility] Tellez [facility] 04:21:00 PM EDT Medical C enter Smoking 05/14/2020 Daily Smoker completed Daily Smoker [facility] Tellez [facility] 04:12:00 PM EDT Medical C enter Caffeine Use 07/02/2019 completed [facility] (Rafal nt Details 12:00:00 AM EST [facility]) Smoking 07/02/2019 Unknown if completed Unknown if ever [facility] ( [facility] 12:00:00 AM EST ever smoked smoked [facility]) Vital Signs ID Date Data Source UNK Name Value Range Interpretation Code Description Data Source(s) Body temperature 36.674410 36.814067 Estefani [facility] Respiratory rate 18 /min 18 /min [facility] Oxygen saturation 98 % 98 % [facility]ph[facility] in [facility] by Pulse oximetry Heart rate 80 /min 80 /min [facility] Diastolic blood 75 mm[Hg] 75 mm[Hg] [facility] Systolic blood 130 mm[Hg] 130 mm[Hg] [facility] Body weight 127.716544 127.606794 kg [facility] Measured kg [facility] Body temperature 36.129963 36.718215 Estefani [facility] Respiratory rate 19 /min 19 /min [facility] Oxygen saturation 99 % 99 % [facility] in [facility] by Pulse oximetry Heart rate 86 /min 86 /min [facility] Body height 170.938599 170.742987 cm [facility] Diastolic blood 75 mm[Hg] 75 mm[Hg] [facility] Systolic blood 137 mm[Hg] 137 mm[Hg] [facility] Body mass index 43.8 kg/m2 43.8 kg/m2 [facility] (BMI) [Ratio] Medical [address] Diastolic blood 79 mm[Hg] 79 mm[Hg] [facility] Systolic blood 128 mm[Hg] 128 mm[Hg] [facility] (S aint pressure [facility]) Oxygen saturation 96 % 96 % [facility] in Arterial blood [facility] by Pulse oximetry Center) Body mass index 39.87 kg/m2 Overweight 39.87 kg/m2 [facility] ([facility] (BMI) [Ratio] [facility]) Respiratory rate 20 /min 20 /min [facility] ([facility]) Body temperature 36.83 Estefani 36.83 Estefani [facility] Heart rate 95 /min 95 /min [facility] ([facility]) Diastolic blood 92 mm[Hg] 92 mm[Hg] [facility] ( [facility]) Systolic blood 138 mm[Hg] 138 mm[Hg] [facility] (S aint pressure [facility]) Body weight 112.037 kg 112.037 kg [facility] ([facility]) Body height 167.64 cm 167.64 cm [facility] ([facility]) Patient Treatment Plan of Care Planned Activity Planned Date Details Description Data Source (s) Escitalopram 10 MG Oral 06/26/2019 12:00:00 [facility] ([facility] Tablet [Lexapro] AM [facility]) Escitalopram 20 MG Oral 02/19/2019 12:00:00 [facility] ([facility] Tablet [Lexapro] AM [facility])
[2020-05-16 07:03] VITALS: BMI 43.8
[2020-05-16] MEDS: IBUPROFEN 400 MG TABLET (FP) PO PRN ×3 (08:00→22:10)
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
--- NOTE | 2020-05-16 09:23 | PN ---
[facility] CIWA - CIWA Score Nausea/Vomitin-No Nausea/No Vomiting Muscle Tremors: 4-Moderate,w/Arms Extend Anxiety: 4-Mod. Anxious/Guarded Agitation: 3 Paroxysmal Sweats: 2 Orientation: 0-Oriented Tacttile Disturbances: 0-None Auditory Disturbances: 0-None Visual Disturbances: 3-Moderate Sensitivity Headache: 4-Moderately Severe CIWA-Ar Total Score: 20 S COWS - Scale Resting Pulse: 2= [place] 101-120 Sweatin= No chills or Flushing Restless Observation: 0= Sits Still Pupil Size: 1= Pupils >than Normal Bone or Joint Aches: 2= Severe Diffuse Aches Runny Nose/ Eye Tearin= None GI Upset > 30mins: 1= Stomach Cramp Tremor Observation of Outstretched Hands: 2= Slight Tremor Visible Yawning Observation: 0= None Anxiety or Irritability: 4=Extreme Anxiety Goose Flesh Skin: 0=Smooth Skin COWS Score: 12 S Progress Note (SOAP) Subjective: 34 years old male was admitted on 05/16/20 for alcohol and opiate withdrawal sx management treating with librium and methadone detox regiments mr maier states that he has long history of anxiety denies treatment denies psychosocial therapy denies psychotropic medication offer valium detox regiment as counter measure for anxiety increase vistaril to 50mg po q6h emotional assurance given provide professional support discontinue librium begin valium regiment clonidine 0.1 mg po prn Objective: 05/16/20 09:59 Vital Signs - 24 hr 05/16/20 05/16/20 05/16/20 06:46 07:02 07:32 Temperature 97.3 F L 97.3 F L 97.3 F L Pulse Rate 91 H 91 H 86 Respiratory 18 18 18 Rate Blood Pressure 136/86 136/86 155/97 O2 Sat by Pulse 98 Oximetry (%) 05/16/20 08:38 Temperature 98.2 F Pulse Rate 117 H Respiratory 20 Rate Blood Pressure 127/85 O2 Sat by Pulse Oximetry (%) 05/16/20 09:59 lab pending Assessment: 05/16/20 09:59 alcohol and opiate withdrawal Plan: valium and methadone regiments
[2020-05-16] MEDS: NICOTINE POLACRILEX 4 MG GUM BUC PRN ×3 (09:40→20:51)
[2020-05-16] MEDS: hydrOXYzine PAMOATE 50 MG CAPSULE (FP) PO SCH ×3 (10:00→22:08)
[2020-05-16] MEDS: PRENATAL VITAMINS W/ FOLIC ACID TABLET (FP) PO SCH (10:01)
[2020-05-16] MEDS: diazePAM 5 MG TABLET PO SCH ×3 (10:01→22:08)
[2020-05-16] MEDS: NICOTINE 21 MG/24 HOURS TOPICAL PATCH TD SCH (10:01)
[2020-05-16 10:09] LABS: HEMATOCRIT 41.3 % (35.4-49); HEMOGLOBIN 13.7 GM/dL (11.7-16.9); MCH 29.8 pg (25.7-33.7); MEAN CELL VOLUME 90.3 fl (80-96); MEAN PLT VOLUME 7.6 fl (7.5-11.1); PLATELET COUNT 274 K/MM3 (134-434); POTASSIUM 3.9 mmol/L (3.5-5.1); RBC 4.58 M/mm3 (4.00-5.60); RDW 17.2 % (11.9-15.9); WHITE BLOOD COUNT 5.4 K/mm3 (4.0-10.0)
[2020-05-16 10:12] LABS: CALCIUM 9.2 mg/dL (8.5-10.1)
[2020-05-16 10:13] LABS: ALBUMIN 3.8 g/dl (3.4-5.0)
[2020-05-16 10:16] LABS: CREATININE 0.9 mg/dL (0.55-1.3)
[2020-05-16 10:18] LABS: BILIRUBIN,TOTAL 0.5 mg/dL (0.2-1); TOT PROT 8.5 g/dl (6.4-8.2)
[2020-05-16] MEDS: diazePAM 5 MG TABLET PO PRN ×2 (13:24→19:19)
[2020-05-16] MEDS: METHOCARBAMOL 500 MG TABLET PO PRN (13:24)
[2020-05-16] MEDS ORDERED: SUVOREXANT 10 MG TABLET PO PRN (22:00)
[2020-05-16] MEDS: THIAMINE HCL 100 MG TABLET (FP) PO SCH (22:08)
[2020-05-16] MEDS: MELATONIN 5 MG TABLETS PO SCH (22:08)
[2020-05-17] MEDS ORDERED: chlordiazePOXIDE HCL 25 MG CAPSULE PO SCH (05:00)
[2020-05-17] MEDS: hydrOXYzine PAMOATE 50 MG CAPSULE (FP) PO SCH ×4 (06:35→22:25)
[2020-05-17] MEDS: diazePAM 5 MG TABLET PO SCH ×4 (06:46→22:12)
[2020-05-17] MEDS: diazePAM 5 MG TABLET PO PRN ×3 (07:10→19:49)
[2020-05-17] MEDS: NICOTINE POLACRILEX 4 MG GUM BUC PRN ×4 (07:39→19:51)
[2020-05-17] MEDS ORDERED: METHADONE HCL 10 MG TABLET (FOR DETOX USE ONLY) ONE (09:31)
[2020-05-17] MEDS ORDERED: METHADONE HCL 5 MG TABLET (FOR DETOX USE ONLY) ONE (09:32)
[2020-05-17] MEDS ORDERED: METHADONE (DETOX) 20 MG, METHADONE (DETOX) 5 MG PO ONE (10:00)
--- NOTE | 2020-05-17 10:09 | PN ---
[facility] CIWA - CIWA Score Nausea/Vomitin-Mild Nausea/No Vomiting Muscle Tremors: 2 Anxiety: 4-Mod. Anxious/Guarded Agitation: 2 Paroxysmal Sweats: 1-Minimal Palms Moist Orientation: 0-Oriented Tacttile Disturbances: 1-Very Mild Itch/Numbness Auditory Disturbances: 0-None Visual Disturbances: 2-Mild Sensitivity Headache: 2-Mild CIWA-Ar Total Score: 15 S COWS - Scale Resting Pulse: 0= [place] 80 or Below Sweatin= Chills/Flushing Restless Observation: 0= Sits Still Pupil Size: 0= Normal to Room Light Bone or Joint Aches: 1= Mild Discomfort Runny Nose/ Eye Tearin= None GI Upset > 30mins: 2= Nausea/Diarrhea Tremor Observation of Outstretched Hands: 2= Slight Tremor Visible Yawning Observation: 0= None Anxiety or Irritability: 2=Irritable/Anxious Goose Flesh Skin: 3=Piloerection COWS Score: 11 S Progress Note (SOAP) Subjective: 34 years old male was admitted on 05/16/20 for alcohol and opiate withdrawal sx management treating with valium and methadone detox regiments loose stool after breakfast imodium 4 mg po x 1 chronic ankles pain "first the left now the right" tylenal 650mg po x 1 robaxin 750 mg po x 1 for right leg muscle spasm Objective: 05/17/20 10:28 Vital Signs - 24 hr 05/16/20 05/16/20 05/16/20 12:37 16:48 20:51 Temperature 97.7 F 98.1 F 97.3 F L Pulse Rate 74 75 75 Respiratory 18 17 18 Rate Blood Pressure 116/66 117/66 117/86 O2 Sat by Pulse 98 99 Oximetry (%) 05/17/20 08:34 Temperature 97.3 F L Pulse Rate 80 Respiratory 18 Rate Blood Pressure 136/104 H O2 Sat by Pulse Oximetry (%) Laboratory Tests 05/16/20 05/16/20 05/16/20 07:20 07:45 07:45 WBC 5.4 RBC 4.58 Hgb 13.7 Hct 41.3 MCV 90.3 MCH 29.8 MCHC 33.0 RDW 17.2 H Plt Count 274 D MPV 7.6 Sodium 137 Potassium 3.9 Chloride 102 Carbon Dioxide 28 Anion Gap 7 L BUN 4.0 L Creatinine 0.9 Est GFR (CKD-EPI)AfAm 130.52 Est GFR (CKD-EPI)NonAf 112.62 Random Glucose 104 Calcium 9.2 Total Bilirubin 0.5 AST 119 H ALT 113 H Alkaline Phosphatase 171 H Total Protein 8.5 H Albumin 3.8 Syphilis Serology COVID-19 ([facility]IN) Not detected HIV Ag/Ab Combo Qual 05/16/20 05/16/20 07:45 08:20 WBC RBC Hgb Hct MCV MCH MCHC RDW Plt Count MPV Sodium Potassium Chloride Carbon Dioxide Anion Gap BUN Creatinine Est GFR (CKD-EPI)AfAm Est GFR (CKD-EPI)NonAf Random Glucose Calcium Total Bilirubin AST ALT Alkaline Phosphatase Total Protein Albumin Syphilis Serology Non-reactive COVID-19 (JUSTIN) HIV Ag/Ab Combo Qual Negative ast elevation repeat ast Assessment: 05/17/20 10:30 alcohol and opiate withdrawal Plan: valium and methadone regiments
[2020-05-17] MEDS ORDERED: LOPERAMIDE HCL 2 MG CAPSULE PO ONE (10:10)
[2020-05-17] MEDS ORDERED: IBUPROFEN 400 MG TABLET (FP) PO ONE (10:10)
[2020-05-17] MEDS: PRENATAL VITAMINS W/ FOLIC ACID TABLET (FP) PO SCH (10:17)
[2020-05-17] MEDS: NICOTINE 21 MG/24 HOURS TOPICAL PATCH TD SCH (10:19)
[2020-05-17] MEDS ORDERED: ACETAMINOPHEN 325 MG TABLET (FP) PO ONE (10:30)
[2020-05-17] MEDS ORDERED: METHOCARBAMOL 750 MG TAB PO ONE (10:30)
[2020-05-17] MEDS: METHOCARBAMOL 500 MG TABLET PO PRN (13:09)
[2020-05-17 14:36] LABS: URINE APPEARANCE CLEAR; URINE BILIRUBIN NEGATIVE (NEGATIVE); URINE COLOR YELLOW; URINE GLUCOSE (UA) NEGATIVE (NEGATIVE); URINE KETONE NEGATIVE (NEGATIVE); URINE LEUK ESTERASE NEGATIVE (NEGATIVE); URINE NITRITE NEGATIVE (NEGATIVE); URINE PROTEIN NEGATIVE (NEGATIVE); URINE UROBILINOGEN 0.2 mg/dL (0.2-1.0)
--- NOTE | 2020-05-17 16:57 | PN ---
[facility] Progress Note Note: Psychiatry Attending's note : Approached by patient. Mr Mckeon came spontaneously to office. To complaint about anxiety + insomnia. Patient was seen by Dr Reed on 05/16/20. Note read. Patient describes belsomra 10 mg/hs as ineffective. Sleep hygiene principles are revisited with the patient. Advised to resume SSRI medications. Patient declines. He states that he will utilize his prn doses of diazepam. Action : Belsomra is raised to 15 mg po hs (with informed consent).
[2020-05-17] MEDS: THIAMINE HCL 100 MG TABLET (FP) PO SCH (22:12)
[2020-05-17] MEDS: MELATONIN 5 MG TABLETS PO SCH (22:12)
[2020-05-17] MEDS: SUVOREXANT 15 MG TABLET PO PRN (22:14)
[2020-05-18] MEDS ORDERED: chlordiazePOXIDE HCL 10 MG CAPSULE PO PRN
[2020-05-18] MEDS ORDERED: chlordiazePOXIDE HCL 10 MG CAPSULE PO SCH (05:00)
[2020-05-18] MEDS: hydrOXYzine PAMOATE 50 MG CAPSULE (FP) PO SCH ×4 (05:13→22:07)
[2020-05-18] MEDS: diazePAM 5 MG TABLET PO SCH ×3 (05:14→21:30)
[2020-05-18] MEDS: NICOTINE POLACRILEX 4 MG GUM BUC PRN ×7 (05:14→21:35)
--- NOTE | 2020-05-18 09:30 | PN ---
[facility] CIWA - CIWA Score Nausea/Vomitin Muscle Tremors: 2 Anxiety: 2 Agitation: 2 Paroxysmal Sweats: No Perspiration Orientation: 0-Oriented Tacttile Disturbances: 1-Very Mild Itch/Numbness Auditory Disturbances: 0-None Visual Disturbances: 0-None Headache: 2-Mild CIWA-Ar Total Score: 11 BHS COWS - Scale Resting Pulse: 0= [place] 80 or Below Sweatin= No chills or Flushing Restless Observation: 0= Sits Still Pupil Size: 1= Pupils >than Normal Bone or Joint Aches: 1= Mild Discomfort Runny Nose/ Eye Tearin= Runny Nose/Eyes GI Upset > 30mins: 2= Nausea/Diarrhea Tremor Observation of Outstretched Hands: 2= Slight Tremor Visible Yawning Observation: 1= 1-2x During Session Anxiety or Irritability: 2=Irritable/Anxious Goose Flesh Skin: 0=Smooth Skin COWS Score: 11 S Progress Note (SOAP) Subjective: alert,irritable,anxious,interrupted sleep,tremor,aching pain, Objective: 05/18/20 11:18 Vital Signs Temperature 97.1 F L 05/18/20 08:30 Pulse Rate 80 05/18/20 08:30 Respiratory Rate 18 05/18/20 08:30 Blood Pressure 123/84 05/18/20 08:30 O2 Sat by Pulse Oximetry (%) 100 05/18/20 08:30 Laboratory Last Values WBC 5.4 K/mm3 (4.0-10.0) 05/16/20 07:45 RBC 4.58 M/mm3 (4.00-5.60) 05/16/20 07:45 Hgb 13.7 GM/dL (11.7-16.9) 05/16/20 07:45 Hct 41.3 % (35.4-49) 05/16/20 07:45 MCV 90.3 fl (80-96) 05/16/20 07:45 MCH 29.8 pg (25.7-33.7) 05/16/20 07:45 MCHC 33.0 g/dl (32.0-35.9) 05/16/20 07:45 RDW 17.2 % (11.9-15.9) H 05/16/20 07:45 Plt Count 274 K/MM3 (134-434) D 10/19/20 07:45 MPV 7.6 fl (7.5-11.1) 05/16/20 07:45 Sodium 137 mmol/L (136-145) 05/16/20 07:45 Potassium 3.9 mmol/L (3.5-5.1) 05/16/20 07:45 Chloride 102 mmol/L (98-107) 05/16/20 07:45 Carbon Dioxide 28 mmol/L (21-32) 05/16/20 07:45 Anion Gap 7 MMOL/L (8-16) L 05/16/20 07:45 BUN 4.0 mg/dL (7-18) L 05/16/20 07:45 Creatinine 0.9 mg/dL (0.55-1.3) 05/16/20 07:45 Est GFR (CKD-EPI)AfAm 130.52 05/16/20 07:45 Est GFR (CKD-EPI)NonAf 112.62 05/16/20 07:45 Random Glucose 104 mg/dL (74-106) 05/16/20 07:45 Calcium 9.2 mg/dL (8.5-10.1) 05/16/20 07:45 Total Bilirubin 0.5 mg/dL (0.2-1) 05/16/20 07:45 AST 119 U/L (15-37) H 05/16/20 07:45 ALT 113 U/L (13-61) H 05/16/20 07:45 Alkaline Phosphatase 171 U/L (45-117) H 05/16/20 07:45 Total Protein 8.5 g/dl (6.4-8.2) H 05/16/20 07:45 Albumin 3.8 g/dl (3.4-5.0) 05/16/20 07:45 Urine Color Yellow 05/17/20 07:44 Urine Appearance Clear 05/17/20 07:44 Urine pH 6.0 (5.0-8.0) 05/17/20 07:44 Ur Specific [place] 1.012 (1.010-1.035) 05/17/20 07:44 Urine Protein Negative (NEGATIVE) 05/17/20 07:44 Urine Glucose (UA) Negative (NEGATIVE) 05/17/20 07:44 Urine Ketones Negative (NEGATIVE) 05/17/20 07:44 Urine Blood Negative (NEGATIVE) 05/17/20 07:44 Urine Nitrite Negative (NEGATIVE) 05/17/20 07:44 Urine Bilirubin Negative (NEGATIVE) 05/17/20 07:44 Urine Urobilinogen 0.2 mg/dL (0.2-1.0) 05/17/20 07:44 Ur Leukocyte Esterase Negative (NEGATIVE) 05/17/20 07:44 Syphilis Serology Non-reactive (NONREACTIVE) 05/16/20 07:45 COVID-19 ([facility]IN) Not detected (Not Detected) 05/16/20 07:20 HIV Ag/Ab Combo Qual Negative (NEGATIVE) 05/16/20 08:20 Assessment: 05/18/20 11:18 withdrawal symptom Plan: continue detox,elevated liver enzymes,repeat cmp,inr in am
[2020-05-18] MEDS ORDERED: METHADONE HCL 10 MG TABLET (FOR DETOX USE ONLY) PO ONE (10:00)
[2020-05-18] MEDS: PRENATAL VITAMINS W/ FOLIC ACID TABLET (FP) PO SCH (10:07)
[2020-05-18] MEDS: METHOCARBAMOL 500 MG TABLET PO PRN (10:07)
[2020-05-18] MEDS: NICOTINE 21 MG/24 HOURS TOPICAL PATCH TD SCH (10:08)
[2020-05-18] MEDS: diazePAM 5 MG TABLET PO PRN ×2 (10:10→17:21)
[2020-05-18] MEDS: THIAMINE HCL 100 MG TABLET (FP) PO SCH (22:07)
[2020-05-18] MEDS: MELATONIN 5 MG TABLETS PO SCH (22:07)
[2020-05-18] MEDS: SUVOREXANT 15 MG TABLET PO PRN (22:08)
[2020-05-19] MEDS ORDERED: chlordiazePOXIDE HCL 10 MG CAPSULE PO SCH (05:00)
[2020-05-19] MEDS: hydrOXYzine PAMOATE 50 MG CAPSULE (FP) PO SCH ×4 (05:20→22:03)
[2020-05-19] MEDS: diazePAM 5 MG TABLET PO SCH ×2 (05:20→17:30)
[2020-05-19] MEDS: NICOTINE POLACRILEX 4 MG GUM BUC PRN ×6 (05:22→17:41)
[2020-05-19] MEDS ORDERED: METHADONE HCL 5 MG TABLET (FOR DETOX USE ONLY) ONE (08:44)
[2020-05-19] MEDS ORDERED: METHADONE HCL 10 MG TABLET (FOR DETOX USE ONLY) ONE (08:44)
[2020-05-19] MEDS ORDERED: METHADONE (DETOX) 10 MG, METHADONE (DETOX) 5 MG PO ONE (10:00)
[2020-05-19] MEDS: PRENATAL VITAMINS W/ FOLIC ACID TABLET (FP) PO SCH (10:20)
[2020-05-19] MEDS: NICOTINE 21 MG/24 HOURS TOPICAL PATCH TD SCH (10:21)
[2020-05-19] MEDS: METHOCARBAMOL 500 MG TABLET PO PRN ×2 (10:25→22:05)
--- NOTE | 2020-05-19 12:01 | PN ---
[facility] CIWA - CIWA Score Nausea/Vomitin-Mild Nausea/No Vomiting Muscle Tremors: 2 Anxiety: 2 Agitation: 1-Slight > Activity Paroxysmal Sweats: No Perspiration Orientation: 0-Oriented Tacttile Disturbances: 0-None Auditory Disturbances: 0-None Visual Disturbances: 0-None Headache: 0-None Present CIWA-Ar Total Score: 6 S COWS - Scale Resting Pulse: 1= [place] 81-100 Sweatin= No chills or Flushing Restless Observation: 0= Sits Still Pupil Size: 0= Normal to Room Light Bone or Joint Aches: 1= Mild Discomfort Runny Nose/ Eye Tearin= Nasal Congestion GI Upset > 30mins: 1= Stomach Cramp Tremor Observation of Outstretched Hands: 2= Slight Tremor Visible Yawning Observation: 0= None Anxiety or Irritability: 2=Irritable/Anxious Goose Flesh Skin: 0=Smooth Skin COWS Score: 8 [facility] Progress Note (SOAP) Subjective: alert,irritable,anxious,interrupted sleep,aching pain Objective: 05/19/20 12:00 Vital Signs Temperature 96.9 F L 05/19/20 08:39 Pulse Rate 88 05/19/20 08:39 Respiratory Rate 18 05/19/20 08:39 Blood Pressure 154/99 05/19/20 08:39 O2 Sat by Pulse Oximetry (%) 99 05/19/20 06:11 Assessment: 05/19/20 12:00 withdrawal symptom but less 05/19/20 12:00 Plan: continue detox methadone and valium,medication adjust,discharge in am
[2020-05-19 14:45] LABS: POTASSIUM 4.3 mmol/L (3.5-5.1)
[2020-05-19 14:47] LABS: BLOOD UREA NITROGEN 11.7 mg/dL (7-18); CALCIUM 10.5 mg/dL (8.5-10.1)
[2020-05-19 14:48] LABS: ALBUMIN 4.2 g/dl (3.4-5.0)
[2020-05-19 14:51] LABS: CREATININE 1.2 mg/dL (0.55-1.3)
[2020-05-19 14:52] LABS: BILIRUBIN,TOTAL 0.7 mg/dL (0.2-1); INR 1.08 (0.83-1.09); PROTHROMBIN TIME (PATIENT) 13.3 SEC (9.7-13.0); TOT PROT 9.1 g/dl (6.4-8.2)
[2020-05-19] MEDS: THIAMINE HCL 100 MG TABLET (FP) PO SCH (22:03)
[2020-05-19] MEDS: MELATONIN 5 MG TABLETS PO SCH (22:03)
[2020-05-19] MEDS: SUVOREXANT 15 MG TABLET PO PRN (22:04)
[2020-05-20] MEDS ORDERED: chlordiazePOXIDE HCL 10 MG CAPSULE PO ONE (05:00)
[2020-05-20] MEDS: NICOTINE POLACRILEX 4 MG GUM BUC PRN (05:31)
[2020-05-20] MEDS: hydrOXYzine PAMOATE 50 MG CAPSULE (FP) PO SCH (05:31)
[2020-05-20] MEDS ORDERED: METHADONE HCL 5 MG TABLET (FOR DETOX USE ONLY) PO ONE (06:00)
[2020-05-20] MEDS ORDERED: diazePAM 5 MG TABLET PO ONE (06:00)
[2020-05-20 06:17] VITALS: BP 131/83; PULSE 74; TEMP 98
--- NOTE | 2020-05-20 07:06 | DS ---
[facility] Detox Discharge Summary Admission Date: 05/16/20 Discharge Date: 05/20/20 - History Present History: Alcohol Dependence, Cocaine Dependence, Opioid Dependence, Sedative Dependence Pertinent Past History: ASTHMA NICOTINE DEP MDD INSOMNIA MOOD D/O - Physical Exam Results Vital Signs: Vital Signs Temperature 98.0 F 05/20/20 06:16 Pulse Rate 74 05/20/20 06:16 Respiratory Rate 20 05/20/20 06:16 Blood Pressure 131/83 05/20/20 06:16 O2 Sat by Pulse Oximetry (%) 99 05/20/20 06:16 Pertinent Admission Physical Exam Findings: WITHDRAWAL SX'S Laboratory Tests 05/16/20 05/16/20 05/16/20 07:20 07:45 07:45 WBC 5.4 RBC 4.58 Hgb 13.7 Hct 41.3 MCV 90.3 MCH 29.8 MCHC 33.0 RDW 17.2 H Plt Count 274 D MPV 7.6 PT with INR INR Sodium 137 Potassium 3.9 Chloride 102 Carbon Dioxide 28 Anion Gap 7 L BUN 4.0 L Creatinine 0.9 Est GFR (CKD-EPI)AfAm 130.52 Est GFR (CKD-EPI)NonAf 112.62 Random Glucose 104 Calcium 9.2 Total Bilirubin 0.5 AST 119 H ALT 113 H Alkaline Phosphatase 171 H Total Protein 8.5 H Albumin 3.8 Urine Color Urine Appearance Urine pH Ur Specific [place] Urine Protein Urine Glucose (UA) Urine Ketones Urine Blood Urine Nitrite Urine Bilirubin Urine Urobilinogen Ur Leukocyte Esterase Syphilis Serology COVID-19 ([facility]IN) Not detected HIV Ag/Ab Combo Qual 05/16/20 05/16/20 05/17/20 07:45 08:20 07:44 WBC RBC Hgb Hct MCV MCH MCHC RDW Plt Count MPV PT with INR INR Sodium Potassium Chloride Carbon Dioxide Anion Gap BUN Creatinine Est GFR (CKD-EPI)AfAm Est GFR (CKD-EPI)NonAf Random Glucose Calcium Total Bilirubin AST ALT Alkaline Phosphatase Total Protein Albumin Urine Color Yellow Urine Appearance Clear Urine pH 6.0 Ur Specific [place] 1.012 Urine Protein Negative Urine Glucose (UA) Negative Urine Ketones Negative Urine Blood Negative Urine Nitrite Negative Urine Bilirubin Negative Urine Urobilinogen 0.2 Ur Leukocyte Esterase Negative Syphilis Serology Non-reactive COVID-19 ([facility]IN) HIV Ag/Ab Combo Qual Negative 05/19/20 05/19/20 13:26 13:26 WBC RBC Hgb Hct MCV MCH MCHC RDW Plt Count MPV PT with INR 13.30 H INR 1.08 Sodium 137 Potassium 4.3 Chloride 102 Carbon Dioxide 29 Anion Gap 6 L BUN 11.7 Creatinine 1.2 Est GFR (CKD-EPI)AfAm 92.18 Est GFR (CKD-EPI)NonAf 79.53 Random Glucose 107 H Calcium 10.5 H Total Bilirubin 0.7 AST 235 H ALT 183 H Alkaline Phosphatase 169 H Total Protein 9.1 H Albumin 4.2 Urine Color Urine Appearance Urine pH Ur Specific [place] Urine Protein Urine Glucose (UA) Urine Ketones Urine Blood Urine Nitrite Urine Bilirubin Urine Urobilinogen Ur Leukocyte Esterase Syphilis Serology COVID-19 ([facility]IN) HIV Ag/Ab Combo Qual - Treatment Hospital Course: Detox Protocol Followed, Detoxed Safely, Responded well, Discha rged Condition Good, Rehab Referral Accepted Patient has Accepted a Rehab Referral to: POSITIVE DIRECTIONS - Medication Discharge Medications: Ambulatory Orders Albuterol Sulfate Inhaler - [Ventolin HFA Inhaler -] 2 inh PO Q4H PRN 08/27/17 - Diagnosis (1) Alcohol dependence with uncomplicated withdrawal Status: Resolved (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 (4) Anxiety and depression Status: Chronic (5) Opioid dependence with withdrawal Status: Resolved (6) Asthma Status: Chronic Qualifiers: Asthma severity: mild Asthma persistence: intermittent Asthma complication type: uncomplicated Qualified Code(s): J45.20 - Mild intermittent asthma, uncomplicated (7) Cocaine dependence Status: Chronic Qualifiers: Substance use status: uncomplicated Qualified Code(s): F14.20 - Cocaine dependence, uncomplicated (8) Nicotine dependence Status: Chronic Qualifiers: Nicotine product type: cigarettes Substance use status: uncomplicated Qualified Code(s): F17.210 - Nicotine dependence, cigarettes, uncomplicated (9) Substance induced mood disorder Status: Chronic - AMA Did Patient Leave Against Medical Advice: No
[2020-05-20] MEDS ORDERED: METHADONE HCL 10 MG TABLET (FOR DETOX USE ONLY) PO ONE (10:00)
[2020-05-21] MEDS ORDERED: METHADONE HCL 5 MG TABLET (FOR DETOX USE ONLY) PO ONE (06:00)
== END 2020-05-20 06:50 | disposition home or self-care (01) | DRG 773 ==
LOC: YASAS 05:24 → Y3N 06:37
PROVIDERS: ADMIT Allergy & Immunology; ATTEND Allergy & Immunology
PROC: HZ2ZZZZ Detoxification Services for Substance Abuse Treatment (ICD-10-PCS; principal; 2020-05-16)
DX: F10.230 Alcohol dependence with withdrawal, uncomplicated (principal); F11.23 Opioid dependence with withdrawal; F14.20 Cocaine dependence, uncomplicated; F13.20 Sedative, hypnotic or anxiolytic dependence, uncomplicated; F17.210 Nicotine dependence, cigarettes, uncomplicated; F19.282 Other psychoactive substance dependence with psychoactive substance-induced sleep disorder; F19.24 Other psychoactive substance dependence with psychoactive substance-induced mood disorder; F10.24 Alcohol dependence with alcohol-induced mood disorder; F39 Unspecified mood [affective] disorder; F10.282 Alcohol dependence with alcohol-induced sleep disorder; F32.9 Major depressive disorder, single episode, unspecified; F41.9 Anxiety disorder, unspecified; J45.20 Mild intermittent asthma, uncomplicated; G47.00 Insomnia, unspecified; J34.89 Other specified disorders of nose and nasal sinuses; N52.9 Male erectile dysfunction, unspecified; R39.11 Hesitancy of micturition; Z88.0 Allergy status to penicillin; Z56.0 Unemployment, unspecified
CPT/HCPCS: 36415; 80053; 81003; 85027; 85610; 86780; 87389; C9803; J0735; U0003

== ENCOUNTER 2020-11-21 21:08 | Inpatient (IN) | payer OTHER ==
[2020-11-21] MEDS ORDERED: P-EPHED 60MG/TRIPROLIDI 2.5MG TABLET PO PRN (23:21)
[2020-11-21] MEDS ORDERED: MAGNESIUM CITRATE 300 ML BOTTLE PO PRN (23:21)
[2020-11-21] MEDS ORDERED: ONDANSETRON *ODT* 4 MG TABLET SL PRN (23:21)
[2020-11-21] MEDS ORDERED: DICYCLOMINE HCL 10 MG CAPSULE PO PRN (23:21)
[2020-11-21] MEDS ORDERED: MENTHOL/PHENOL 1 EACH UD MM PRN (23:21)
[2020-11-21] MEDS ORDERED: MAGNESIUM HYDROX 2400MG/30ML ORAL SUSPENSION 30 ML CUP PO PRN (23:21)
[2020-11-21] MEDS ORDERED: MAG HYDROX/AL HYDROX/SIMETH 30 ML UNIT-DOSE CUP PO PRN (23:21)
[2020-11-21] MEDS ORDERED: guaiFENesin 200 MG/10 ML 10 ML UNIT-DOSE CUPS PO PRN (23:21)
[2020-11-21] MEDS ORDERED: IBUPROFEN 400 MG TABLET (FP) PO PRN (23:21)
[2020-11-21] MEDS ORDERED: ACETAMINOPHEN 325 MG TABLET (FP) PO PRN ×2 (23:21)
[2020-11-21] MEDS ORDERED: BISMUTH SUBSALICYLATE 524 MG/30 ML UD PO PRN (23:21)
[2020-11-21 23:22] VITALS: BMI 40.7
[2020-11-22] MEDS: LORazepam 2 MG TABLET PO SCH ×5 (00:44→22:08)
[2020-11-22] MEDS ORDERED: METHADONE HCL 40 MG DISPERSABLE TABLET PO ONE (08:45)
[2020-11-22] MEDS: NICOTINE 14 MG/24 HOURS TOPICAL PATCH TD SCH (10:32)
[2020-11-22] MEDS: PRENATAL VITAMINS W/ FOLIC ACID TABLET (FP) PO SCH (10:32)
[2020-11-22] MEDS: NICOTINE POLACRILEX 2 MG GUM BUC PRN ×6 (10:35→23:38)
[2020-11-22 11:09] LABS: ALBUMIN 3.5 g/dl (3.4-5.0); BLOOD UREA NITROGEN 11.7 mg/dL (7-18); CALCIUM 9.3 mg/dL (8.5-10.1)
[2020-11-22 11:14] LABS: BILIRUBIN,TOTAL 0.8 mg/dL (0.2-1); TOT PROT 7.4 g/dl (6.4-8.2)
[2020-11-22 12:01] LABS: WHITE BLOOD COUNT 5.3 K/mm3 (4.0-10.0)
[2020-11-22 12:04] LABS: HEMOGLOBIN 13.3 GM/dL (11.7-16.9); MCHC 33.2 g/dl (32.0-35.9); MEAN CELL VOLUME 93.5 fl (80-96); MEAN PLT VOLUME 8.1 fl (7.5-11.1); PLATELET COUNT 216 K/MM3 (134-434); RBC 4.28 M/mm3 (4.00-5.60); RDW 15.2 % (11.9-15.9)
[2020-11-22] MEDS: LORazepam 1 MG TABLET PO PRN ×2 (14:33→20:32)
[2020-11-22] MEDS: THIAMINE HCL 100 MG TABLET (FP) PO SCH (22:08)
[2020-11-22] MEDS: SUVOREXANT 10 MG TABLET PO PRN (22:08)
[2020-11-22] MEDS: MELATONIN 5 MG TABLETS PO SCH (22:08)
[2020-11-23] MEDS: LORazepam 1 MG TABLET PO PRN ×3 (01:44→20:14)
[2020-11-23] MEDS: METHADONE HCL 40 MG DISPERSABLE TABLET PO SCH (05:26)
[2020-11-23] MEDS: LORazepam 1 MG TABLET PO SCH ×4 (05:27→22:00)
[2020-11-23] MEDS: NICOTINE POLACRILEX 2 MG GUM BUC PRN ×7 (05:28→20:15)
[2020-11-23] MEDS: PRENATAL VITAMINS W/ FOLIC ACID TABLET (FP) PO SCH (10:09)
[2020-11-23] MEDS: NICOTINE 14 MG/24 HOURS TOPICAL PATCH TD SCH (10:09)
[2020-11-23] MEDS: hydrOXYzine PAMOATE 25 MG CAPSULE (FP) PO PRN ×3 (10:11→22:01)
[2020-11-23] MEDS ORDERED: ALBUTEROL SO4 HFA INHALER IH PRN (11:00)
[2020-11-23] MEDS: THIAMINE HCL 100 MG TABLET (FP) PO SCH (22:01)
[2020-11-23] MEDS: SUVOREXANT 10 MG TABLET PO PRN (22:01)
[2020-11-23] MEDS: MELATONIN 5 MG TABLETS PO SCH (22:01)
[2020-11-24] MEDS ORDERED: LORazepam 0.5 MG TABLET PO PRN
[2020-11-24] MEDS: hydrOXYzine PAMOATE 25 MG CAPSULE (FP) PO PRN ×4 (03:54→21:56)
[2020-11-24] MEDS: METHOCARBAMOL 500 MG TABLET PO PRN ×2 (03:54→21:58)
[2020-11-24] MEDS: NICOTINE POLACRILEX 2 MG GUM BUC PRN ×5 (03:55→21:25)
[2020-11-24] MEDS: METHADONE HCL 40 MG DISPERSABLE TABLET PO SCH (05:20)
[2020-11-24] MEDS: LORazepam 0.5 MG TABLET PO SCH ×4 (05:20→22:00)
[2020-11-24 06:09] LABS: SARS-CoV-2 NAA Not Detected (Not Detected)
[2020-11-24] MEDS: PRENATAL VITAMINS W/ FOLIC ACID TABLET (FP) PO SCH (10:10)
[2020-11-24] MEDS: NICOTINE 14 MG/24 HOURS TOPICAL PATCH TD SCH (10:12)
[2020-11-24] MEDS: MELATONIN 5 MG TABLETS PO SCH (21:56)
[2020-11-24] MEDS: THIAMINE HCL 100 MG TABLET (FP) PO SCH (21:56)
[2020-11-24] MEDS: SUVOREXANT 10 MG TABLET PO PRN (21:57)
[2020-11-25] MEDS ORDERED: LORazepam 0.5 MG TABLET PO ONE (05:00)
[2020-11-25] MEDS: NICOTINE POLACRILEX 2 MG GUM BUC PRN ×3 (05:41→10:25)
[2020-11-25] MEDS: METHADONE HCL 40 MG DISPERSABLE TABLET PO SCH (05:41)
[2020-11-25 09:02] VITALS: BP 119/88; PULSE 95; TEMP 97.3
[2020-11-25] MEDS: PRENATAL VITAMINS W/ FOLIC ACID TABLET (FP) PO SCH (10:24)
[2020-11-25] MEDS: NICOTINE 14 MG/24 HOURS TOPICAL PATCH TD SCH (10:25)
[2020-11-25 10:42] LABS: SGOT/AST 200 U/L (15-37); SGPT/ALT 154 U/L (13-61)
== END 2020-11-25 10:45 | disposition home or self-care (01) | DRG 773 ==
LOC: YASAS 21:08 → Y3N 23:06 → Y6N 11-24 14:22
PROVIDERS: ADMIT Allergy & Immunology; ATTEND Allergy & Immunology
PROC: HZ2ZZZZ Detoxification Services for Substance Abuse Treatment (ICD-10-PCS; principal; 2020-11-21)
DX: F10.230 Alcohol dependence with withdrawal, uncomplicated (principal); F11.20 Opioid dependence, uncomplicated; F13.20 Sedative, hypnotic or anxiolytic dependence, uncomplicated; F17.210 Nicotine dependence, cigarettes, uncomplicated; F19.24 Other psychoactive substance dependence with psychoactive substance-induced mood disorder; F32.9 Major depressive disorder, single episode, unspecified; J45.20 Mild intermittent asthma, uncomplicated; K21.9 Gastro-esophageal reflux disease without esophagitis; R74.8 Abnormal levels of other serum enzymes; E66.01 Morbid (severe) obesity due to excess calories; Z68.41 Body mass index [BMI] 40.0-44.9, adult; Z91.14 Patient's other noncompliance with medication regimen; Z88.0 Allergy status to penicillin; Z91.013 Allergy to seafood
CPT/HCPCS: 36415; 80053; 84450; 84460; 85027; 86780; C9803; U0003; U0005

== ENCOUNTER 2020-12-07 17:50 | Inpatient (IN) | payer OTHER ==
[2020-12-07 19:39] VITALS: BMI 42.6
[2020-12-07] MEDS ORDERED: ONDANSETRON *ODT* 4 MG TABLET SL PRN (22:50)
[2020-12-07] MEDS ORDERED: METHOCARBAMOL 500 MG TABLET PO PRN (22:50)
[2020-12-07] MEDS ORDERED: ACETAMINOPHEN 325 MG TABLET (FP) PO PRN (22:50)
[2020-12-07] MEDS ORDERED: MAGNESIUM CITRATE 300 ML BOTTLE PO PRN (22:50)
[2020-12-07] MEDS ORDERED: BISMUTH SUBSALICYLATE 524 MG/30 ML UD PO PRN (22:50)
[2020-12-07] MEDS ORDERED: MAGNESIUM HYDROX 2400MG/30ML ORAL SUSPENSION 30 ML CUP PO PRN (22:50)
[2020-12-07] MEDS ORDERED: MENTHOL/PHENOL 1 EACH UD MM PRN (22:50)
[2020-12-08] MEDS: chlordiazePOXIDE HCL 25 MG CAPSULE PO SCH ×5 (00:25→22:20)
[2020-12-08] MEDS: chlordiazePOXIDE HCL 25 MG CAPSULE PO PRN ×2 (00:33→14:06)
[2020-12-08] MEDS: ACETAMINOPHEN 325 MG TABLET (FP) PO PRN (00:36)
[2020-12-08] MEDS ORDERED: METHADONE HCL 40 MG DISPERSABLE TABLET PO ONE (08:34)
[2020-12-08] MEDS: PRENATAL VITAMINS W/ FOLIC ACID TABLET (FP) PO SCH (10:07)
[2020-12-08] MEDS: NICOTINE POLACRILEX 2 MG GUM BUC PRN ×5 (10:12→23:51)
[2020-12-08 10:36] LABS: BLOOD UREA NITROGEN 10.9 mg/dL (7-18); CALCIUM 9.3 mg/dL (8.5-10.1)
[2020-12-08 10:37] LABS: HEMATOCRIT 41.7 % (35.4-49); HEMOGLOBIN 14.2 GM/dL (11.7-16.9); MCH 31.3 pg (25.7-33.7); MEAN CELL VOLUME 92.1 fl (80-96); MEAN PLT VOLUME 8.2 fl (7.5-11.1); PLATELET COUNT 265 K/MM3 (134-434); RBC 4.53 M/mm3 (4.00-5.60); RDW 14.2 % (11.9-15.9); WHITE BLOOD COUNT 6.6 K/mm3 (4.0-10.0)
[2020-12-08 10:40] LABS: CREATININE 0.9 mg/dL (0.55-1.3)
[2020-12-08 10:41] LABS: BILIRUBIN,TOTAL 0.7 mg/dL (0.2-1)
[2020-12-08] MEDS: MAG HYDROX/AL HYDROX/SIMETH 30 ML UNIT-DOSE CUP PO PRN (14:07)
[2020-12-08 17:01] LABS: HIV INTERPRETATION NEGATIVE (NEGATIVE)
[2020-12-08] MEDS: IBUPROFEN 400 MG TABLET (FP) PO PRN (17:36)
[2020-12-08] MEDS: hydrOXYzine PAMOATE 25 MG CAPSULE (FP) PO PRN (17:37)
[2020-12-08] MEDS ORDERED: PRAZOSIN HCL 2 MG CAPSULE PO SCH (22:00)
[2020-12-08] MEDS: MELATONIN 5 MG TABLETS PO SCH (22:20)
[2020-12-08] MEDS: THIAMINE HCL 100 MG TABLET (FP) PO SCH (22:20)
[2020-12-08] MEDS: PRAZOSIN HCL 1 MG CAPSULE PO SCH (23:49)
[2020-12-09] MEDS: METHADONE HCL 40 MG DISPERSABLE TABLET PO SCH (06:01)
[2020-12-09] MEDS: chlordiazePOXIDE HCL 25 MG CAPSULE PO SCH ×2 (06:01→12:04)
[2020-12-09] MEDS: NICOTINE POLACRILEX 2 MG GUM BUC PRN ×5 (10:24→22:20)
[2020-12-09] MEDS: PRENATAL VITAMINS W/ FOLIC ACID TABLET (FP) PO SCH (10:24)
[2020-12-09] MEDS ORDERED: LORazepam 2 MG TABLET PO ONE (11:56)
[2020-12-09] MEDS: IBUPROFEN 400 MG TABLET (FP) PO PRN (14:22)
[2020-12-09] MEDS: LORazepam 2 MG TABLET PO SCH ×2 (17:31→22:19)
[2020-12-09] MEDS: LORazepam 1 MG TABLET PO PRN (20:33)
[2020-12-09] MEDS: PRAZOSIN HCL 1 MG CAPSULE PO SCH (22:19)
[2020-12-09] MEDS: THIAMINE HCL 100 MG TABLET (FP) PO SCH (22:19)
[2020-12-09] MEDS: MELATONIN 5 MG TABLETS PO SCH (22:20)
[2020-12-09] MEDS: hydrOXYzine PAMOATE 25 MG CAPSULE (FP) PO PRN (22:21)
[2020-12-10] MEDS ORDERED: chlordiazePOXIDE HCL 10 MG CAPSULE PO PRN
[2020-12-10] MEDS: LORazepam 1 MG TABLET PO PRN ×3 (02:14→19:58)
[2020-12-10] MEDS ORDERED: chlordiazePOXIDE HCL 10 MG CAPSULE PO SCH (05:00)
[2020-12-10] MEDS: METHADONE HCL 40 MG DISPERSABLE TABLET PO SCH (05:46)
[2020-12-10] MEDS: LORazepam 1 MG TABLET PO SCH ×4 (05:47→22:17)
[2020-12-10] MEDS: IBUPROFEN 400 MG TABLET (FP) PO PRN ×3 (06:53→22:40)
[2020-12-10] MEDS: NICOTINE POLACRILEX 2 MG GUM BUC PRN ×5 (09:00→23:50)
[2020-12-10] MEDS: PRENATAL VITAMINS W/ FOLIC ACID TABLET (FP) PO SCH (10:15)
[2020-12-10] MEDS ORDERED: NICOTINE POLACRILEX 2 MG GUM BUC PRN (11:32)
[2020-12-10] MEDS: NICOTINE 21 MG/24 HOURS TOPICAL PATCH TD SCH (13:49)
[2020-12-10 14:09] LABS: SARS-CoV-2 NAA Not Detected (Not Detected)
[2020-12-10] MEDS: MELATONIN 5 MG TABLETS PO SCH (22:16)
[2020-12-10] MEDS: THIAMINE HCL 100 MG TABLET (FP) PO SCH (22:16)
[2020-12-10] MEDS: PRAZOSIN HCL 1 MG CAPSULE PO SCH (22:16)
[2020-12-10] MEDS: hydrOXYzine PAMOATE 25 MG CAPSULE (FP) PO PRN (22:17)
[2020-12-10] MEDS: MAG HYDROX/AL HYDROX/SIMETH 30 ML UNIT-DOSE CUP PO PRN (22:41)
[2020-12-11] MEDS: LORazepam 1 MG TABLET PO PRN ×2 (01:24→14:02)
[2020-12-11] MEDS ORDERED: chlordiazePOXIDE HCL 10 MG CAPSULE PO SCH (05:00)
[2020-12-11] MEDS: METHADONE HCL 40 MG DISPERSABLE TABLET PO SCH (05:40)
[2020-12-11] MEDS: LORazepam 0.5 MG TABLET PO SCH ×4 (05:40→22:09)
[2020-12-11] MEDS: NICOTINE 21 MG/24 HOURS TOPICAL PATCH TD SCH (10:11)
[2020-12-11] MEDS: hydrOXYzine PAMOATE 25 MG CAPSULE (FP) PO PRN ×3 (10:12→22:10)
[2020-12-11] MEDS: IBUPROFEN 400 MG TABLET (FP) PO PRN ×2 (10:12→22:10)
[2020-12-11] MEDS: PRENATAL VITAMINS W/ FOLIC ACID TABLET (FP) PO SCH (10:12)
[2020-12-11] MEDS: NICOTINE POLACRILEX 2 MG GUM BUC PRN ×4 (10:14→22:10)
[2020-12-11] MEDS: ACETAMINOPHEN 325 MG TABLET (FP) PO PRN (14:03)
[2020-12-11] MEDS: MAG HYDROX/AL HYDROX/SIMETH 30 ML UNIT-DOSE CUP PO PRN (19:52)
[2020-12-11] MEDS: PRAZOSIN HCL 1 MG CAPSULE PO SCH (22:09)
[2020-12-11] MEDS: THIAMINE HCL 100 MG TABLET (FP) PO SCH (22:10)
[2020-12-11] MEDS: MELATONIN 5 MG TABLETS PO SCH (22:45)
[2020-12-12] MEDS ORDERED: LORazepam 0.5 MG TABLET PO PRN
[2020-12-12] MEDS: ACETAMINOPHEN 325 MG TABLET (FP) PO PRN (01:46)
[2020-12-12] MEDS: NICOTINE POLACRILEX 2 MG GUM BUC PRN ×2 (01:50→04:34)
[2020-12-12] MEDS ORDERED: chlordiazePOXIDE HCL 10 MG CAPSULE PO ONE (05:00)
[2020-12-12] MEDS: LORazepam 0.5 MG TABLET PO SCH (06:00)
[2020-12-12] MEDS: METHADONE HCL 40 MG DISPERSABLE TABLET PO SCH (06:00)
[2020-12-12] MEDS: NICOTINE 21 MG/24 HOURS TOPICAL PATCH TD SCH (09:24)
[2020-12-12] MEDS: PRENATAL VITAMINS W/ FOLIC ACID TABLET (FP) PO SCH (09:24)
[2020-12-12 09:38] VITALS: BP 120/80; PULSE 78; TEMP 97.1
== END 2020-12-12 10:12 | disposition home or self-care (01) | DRG 773 ==
LOC: YASAS 17:50 → Y3N 23:23
PROVIDERS: ADMIT Allergy & Immunology; ATTEND Allergy & Immunology
PROC: HZ2ZZZZ Detoxification Services for Substance Abuse Treatment (ICD-10-PCS; principal; 2020-12-07)
DX: F10.230 Alcohol dependence with withdrawal, uncomplicated (principal); F11.20 Opioid dependence, uncomplicated; F14.20 Cocaine dependence, uncomplicated; F12.20 Cannabis dependence, uncomplicated; F17.210 Nicotine dependence, cigarettes, uncomplicated; F32.9 Major depressive disorder, single episode, unspecified; F19.282 Other psychoactive substance dependence with psychoactive substance-induced sleep disorder; F19.24 Other psychoactive substance dependence with psychoactive substance-induced mood disorder; J45.20 Mild intermittent asthma, uncomplicated; K21.9 Gastro-esophageal reflux disease without esophagitis; Z88.0 Allergy status to penicillin; Z91.013 Allergy to seafood
CPT/HCPCS: 36415; 80053; 85027; 86780; 87389; 93005; 93010; C9803; U0003; U0005

== ENCOUNTER 2021-01-03 23:30 | Emergency (ER) | payer OTHER ==
[2021-01-03 23:53] VITALS: BP 116/73; PULSE 89; TEMP 98.2; BMI 33.4
[2021-01-03] MEDS ORDERED: ACETAMINOPHEN 500 MG TABLET (FP) PO ONE (23:53)
[2021-01-03] MEDS ORDERED: ACETAMINOPHEN 500 MG TABLET (FP) ONE (23:58)
== END 2021-01-04 01:06 | disposition home or self-care (01) ==
LOC: JER 23:30
DX: M25.571 Pain in right ankle and joints of right foot (principal)
CPT/HCPCS: 73610-TC-RT-FY; 73630-TC-RT-FY; 99284-25

== ENCOUNTER 2021-01-17 15:21 | Inpatient (IN) | payer OTHER ==
[2021-01-17 20:30] VITALS: BMI 36.5
[2021-01-17] MEDS ORDERED: MAGNESIUM HYDROX 2400MG/30ML ORAL SUSPENSION 30 ML CUP PO PRN (20:46)
[2021-01-17] MEDS ORDERED: MAGNESIUM CITRATE 300 ML BOTTLE PO PRN (20:46)
[2021-01-17] MEDS ORDERED: MAG HYDROX/AL HYDROX/SIMETH 30 ML UNIT-DOSE CUP PO PRN (20:46)
[2021-01-17] MEDS ORDERED: ACETAMINOPHEN 325 MG TABLET (FP) PO PRN ×2 (20:46)
[2021-01-17] MEDS ORDERED: BISMUTH SUBSALICYLATE 524 MG/30 ML PO PRN (20:46)
[2021-01-17] MEDS ORDERED: IBUPROFEN 400 MG TABLET (FP) PO PRN (20:46)
[2021-01-17] MEDS ORDERED: ONDANSETRON *ODT* 4 MG TABLET SL PRN (20:46)
[2021-01-17] MEDS ORDERED: MENTHOL/PHENOL 1 EACH UD MM PRN (20:46)
[2021-01-18] MEDS: NICOTINE POLACRILEX 4 MG GUM BUC PRN ×8 (03:14→22:06)
[2021-01-18] MEDS: LORazepam 1 MG TABLET PO PRN ×3 (03:15→19:52)
[2021-01-18] MEDS: LORazepam 2 MG TABLET PO SCH ×4 (06:26→22:03)
[2021-01-18] MEDS: hydrOXYzine PAMOATE 25 MG CAPSULE (FP) PO SCH ×2 (06:26→10:14)
[2021-01-18] MEDS: PRENATAL VITAMINS W/ FOLIC ACID TABLET (FP) PO SCH (10:15)
[2021-01-18] MEDS ORDERED: COVID-19 VAC,AD26(JANSSEN)/PF 0.5 ML IM ONE (11:00)
[2021-01-18] MEDS ORDERED: ALBUTEROL SO4 HFA INHALER IH PRN (11:37)
[2021-01-18] MEDS ORDERED: METHADONE HCL 40 MG DISPERSABLE TABLET PO ONE (11:38)
[2021-01-18 13:33] LABS: HEMATOCRIT 39.6 % (35.4-49); HEMOGLOBIN 12.7 GM/dL (11.7-16.9); MCH 30.2 pg (25.7-33.7); MCHC 32.1 g/dl (32.0-35.9); MEAN CELL VOLUME 94.1 fl (80-96); MEAN PLT VOLUME 7.9 fl (7.5-11.1); PLATELET COUNT 189 10^3/uL (134-434); WHITE BLOOD COUNT 4.5 K/mm3 (4.0-10.0)
[2021-01-18 14:11] LABS: ALBUMIN 3.4 g/dl (3.4-5.0); BLOOD UREA NITROGEN 10.6 mg/dL (7-18); CALCIUM 8.7 mg/dL (8.5-10.1)
[2021-01-18 14:15] LABS: TOT PROT 7.1 g/dl (6.4-8.2)
[2021-01-18 14:18] LABS: BILIRUBIN,TOTAL 1.1 mg/dL (0.2-1)
[2021-01-18] MEDS: hydrOXYzine PAMOATE 25 MG CAPSULE (FP) PO PRN ×2 (17:44→22:06)
[2021-01-18] MEDS: METHOCARBAMOL 500 MG TABLET PO PRN (22:02)
[2021-01-18] MEDS: THIAMINE HCL 100 MG TABLET (FP) PO SCH (22:03)
[2021-01-18] MEDS: MELATONIN 5 MG TABLETS PO SCH (22:03)
[2021-01-19] MEDS: LORazepam 1 MG TABLET PO PRN ×3 (00:48→20:49)
[2021-01-19] MEDS: NICOTINE POLACRILEX 4 MG GUM BUC PRN ×9 (00:49→23:56)
[2021-01-19] MEDS: LORazepam 1 MG TABLET PO SCH ×4 (05:39→22:32)
[2021-01-19] MEDS: hydrOXYzine PAMOATE 25 MG CAPSULE (FP) PO PRN ×3 (05:39→22:31)
[2021-01-19] MEDS: METHADONE HCL 40 MG DISPERSABLE TABLET PO SCH (05:40)
[2021-01-19] MEDS: PRENATAL VITAMINS W/ FOLIC ACID TABLET (FP) PO SCH (10:25)
[2021-01-19] MEDS: METHOCARBAMOL 500 MG TABLET PO PRN (22:31)
[2021-01-19] MEDS: SUVOREXANT 10 MG TABLET PO PRN (22:32)
[2021-01-19] MEDS: THIAMINE HCL 100 MG TABLET (FP) PO SCH (22:32)
[2021-01-20] MEDS: LORazepam 2 MG TABLET PO SCH (00:48)
[2021-01-20] MEDS: THIAMINE HCL 100 MG TABLET (FP) PO SCH ×2 (00:48→22:22)
[2021-01-20] MEDS: MELATONIN 5 MG TABLETS PO SCH (00:48)
[2021-01-20] MEDS: hydrOXYzine PAMOATE 25 MG CAPSULE (FP) PO SCH (00:50)
[2021-01-20] MEDS: LORazepam 0.5 MG TABLET PO PRN ×2 (02:16→14:29)
[2021-01-20] MEDS: NICOTINE POLACRILEX 4 MG GUM BUC PRN ×6 (02:17→20:37)
[2021-01-20] MEDS: hydrOXYzine PAMOATE 25 MG CAPSULE (FP) PO PRN ×3 (02:47→14:29)
[2021-01-20] MEDS: LORazepam 0.5 MG TABLET PO SCH ×4 (05:38→22:22)
[2021-01-20] MEDS: METHADONE HCL 40 MG DISPERSABLE TABLET PO SCH (05:47)
[2021-01-20] MEDS: METHOCARBAMOL 500 MG TABLET PO PRN (10:20)
[2021-01-20] MEDS: PRENATAL VITAMINS W/ FOLIC ACID TABLET (FP) PO SCH (10:20)
[2021-01-20] MEDS: SUVOREXANT 10 MG TABLET PO PRN (22:27)
[2021-01-21] MEDS: NICOTINE POLACRILEX 4 MG GUM BUC PRN ×3 (00:32→08:34)
[2021-01-21] MEDS ORDERED: LORazepam 0.5 MG TABLET PO ONE (05:00)
[2021-01-21] MEDS: METHADONE HCL 40 MG DISPERSABLE TABLET PO SCH (05:40)
[2021-01-21 09:52] VITALS: BP 109/80; PULSE 100; TEMP 96
[2021-01-21 11:00] LABS: SGOT/AST 343 U/L (15-37); SGPT/ALT 227 U/L (13-61)
== END 2021-01-21 09:41 | disposition home or self-care (01) | DRG 773 ==
LOC: YASAS 15:21 → Y3N 20:44
PROVIDERS: ADMIT Allergy & Immunology; ATTEND Allergy & Immunology
PROC: HZ2ZZZZ Detoxification Services for Substance Abuse Treatment (ICD-10-PCS; principal; 2021-01-17)
DX: F10.230 Alcohol dependence with withdrawal, uncomplicated (principal); F11.20 Opioid dependence, uncomplicated; F14.20 Cocaine dependence, uncomplicated; F13.10 Sedative, hypnotic or anxiolytic abuse, uncomplicated; F12.10 Cannabis abuse, uncomplicated; F17.210 Nicotine dependence, cigarettes, uncomplicated; F19.282 Other psychoactive substance dependence with psychoactive substance-induced sleep disorder; F19.24 Other psychoactive substance dependence with psychoactive substance-induced mood disorder; F32.9 Major depressive disorder, single episode, unspecified; J45.909 Unspecified asthma, uncomplicated; K21.9 Gastro-esophageal reflux disease without esophagitis; R74.8 Abnormal levels of other serum enzymes; Z87.19 Personal history of other diseases of the digestive system; Z88.0 Allergy status to penicillin; Z91.013 Allergy to seafood
CPT/HCPCS: 0031A; 36415; 80053; 84450; 84460; 85027; 86780; 91303; C9803; U0003; U0005